=== PATIENT | male | born 1960 | race Caucasian/White ===

== ENCOUNTER 2019-07-07 00:10 | Emergency (ER) | payer OTHER, SELFPAY ==
[2019-07-07 00:19] VITALS: BP 174/94; PULSE 77; RESP 17; TEMP 37; O2SAT 98; BMI 35.3
--- NOTE | 2019-07-07 00:35 | HMH.EDEAR ---
ED Disposition Clinical Impression: Otitis externa Qualifiers: Otitis externa type: diffuse Chronicity: acute Laterality: left Qualified Code(s): H60.312 - Diffuse otitis externa, left ear Disposition: Home, Self-Care Condition on Discharge: Good Instructions: DI for Ear Pain-Adult Additional Instructions: use meds and see pcp for follow up Prescriptions: cephALEXin [Keflex 500mg Cap] 500 mg PO TID #30 cap Prescription Printed predniSONE [Prednisone 20mg Tab] 20 mg PO BID #10 tab Prescription Printed Referrals: Kiersten Sykes [Primary Care Provider] - Brett Goss MD [Staff Physician] - - Critical Care Critical Care Time: No Attestation: On 07/07/19, the high probability of a clinically significant, sudden or life threatening deterioration of the following system(s) required my full and direct attention, intervention and personal management. The time I documented below is in addition to time spent performing reported procedures but includes the following listed in this critical care notation. Medical Decision Making - Medical Records Medical records reviewed: Yes: I reviewed the patient's medical records. - Lionel Inquiry Pt receiving controlled substance: No Vital Signs: 07/07/19 00:19 Temperature 98.6 F Temperature Source Oral Pulse Rate [Right Brachial] 77 Respiratory Rate 17 Blood Pressure [Right Arm] 174/94 H Blood Pressure Mean [Right Arm] 120 Blood Pressure Source [Right Arm] Automatic Cuff Blood Pressure Position [Right Arm] Sitting 02 Sat by Pulse Oximetry 98 Oxygen Delivery Method Room Air - Lab Data Lab results reviewed: Yes: I reviewed the patient's lab results. Lab Results 07/07/19 00:44: WBC 12.5 H, RBC 5.11, Hgb 15.8, Hct 44.3, MCV 86.7, MCH 30.9, MCHC 35.7 H, RDW 13.1, Plt Count 199, MPV 9.2, Neut % (Auto) 68.5, Lymph % (Auto) 22.4, [place] % (Auto) 5.5, Eos % (Auto) 1.8, Baso % (Auto) 1.7, Neut # (Auto) 8.6 H, Lymph # (Auto) 2.8, [place] # (Auto) 0.7, Eos # (Auto) 0.2, Baso # (Auto) 0.2 Result diagrams: 07/07/19 00:44 Orders (Tests/Meds): ED MEDICATIONS Generic Name Dose Route Start Last Admin Trade Name Lou PRN Reason Stop Dose Admin Ceftriaxone Sodium 1 gm/ 50 mls @ 100 mls/hr 07/07/19 00:37 07/07/19 00:48 Sodium Chloride IV 07/07/19 01:06 100 mls/hr ONCE ONE Administration Protocol Discontinued Medications Generic Name Dose Route Start Last Admin Trade Name Lou PRN Reason Stop Dose Admin Ketorolac Tromethamine 30 mg 07/07/19 00:37 07/07/19 00:48 Toradol 30mg/Ml Vial IV 07/07/19 00:38 30 mg ONCE ONE Administration Methylprednisolone Sodium Succinate 125 mg 07/07/19 00:37 07/07/19 00:48 Solu-Medrol 125mg/2ml Vial IV 07/07/19 00:38 125 mg ONCE ONE Administration ORDERS Category Date Time Status CMP [Comprehensive Metabolic Panel] Stat Lab 07/07/19 00:44 Received Ear HPI - General Chief complaint: Ear Stated complaint: pain in left ear Time Seen by Provider: 07/07/19 00:30 Mode of Arrival: Family Vehicle Source of Information: Patient, Medical Record Limitations: No Limitations Description of Symptoms (Recalled from ER Triage Doc. by RN): left side ear ache since saturday morning that he has attempted otc treatment by using peroxide and irrigation, in addition to alternating tyl and motrin. afebrile. states he usually just rides it out but can't sleep and its making his bp high from the pain - History of Present Illness HPI Narrative: progressive lt ear pain over the last few days - no trauma or fever and no rash Complaint: ear pain Location: left ear Duration: constant Severity: moderate Discharge from ear: no Associated symptoms ear: external ear tenderness, ear swelling Treatment prior to arrival: oral analgesic - Related Data Home Medications Medication Instructions Recorded Confirmed Furosemide [Lasix 20mg tab] 20 mg PO DAILY 07/07/19 07/07/19 Indomethacin 25 mg PO T
[2019-07-07 00:59] LABS: Basophils # 0.2 K/mm3 (0-0.2); Basophils % 1.7 % (0.1-2.0); Eosinophils # 0.2 K/mm3 (0.0-0.4); Eosinophils % 1.8 % (0.1-12.0); Hematocrit 44.3 % (42.0-52.0); Hemoglobin 15.8 g/dL (14.1-18.0); Lymphocytes # 2.8 K/mm3 (0.7-4.5); Lymphocytes % 22.4 % (10-50); Mean Corpuscular HGB Conc 35.7 g/dL (31.8-35.4); Mean Corpuscular Hemoglobin 30.9 pg (27.0-31.2); Mean Corpuscular Volume 86.7 fl (80-94); Mean Platelet Volume 9.2 fl (7.4-10.4); Monocytes # 0.7 K/mm3 (0.1-1.0); Monocytes % 5.5 % (1.7-9.3); Neutrophils # 8.6 K/mm3 (1.8-7.8); Neutrophils % 68.5 % (37.0-80.0); Platelet Count 199 K/mm3 (142-424); Red Blood Count 5.11 M/mm3 (4.60-6.20); Red Cell Distribution Width 13.1 % (11.5-17.5); White Blood Count 12.5 K/mm3 (4.8-10.8)
[2019-07-07 01:05] LABS: Alanine Aminotransferase 37 U/L (12-78); Albumin Level 4.7 g/dl (3.5-5.0); Albumin/Globulin Ratio 1.4 (1.1-1.8); Alkaline Phosphatase 107 U/L (38-126); Anion Gap 12.1 mEq/L (5-15); Aspartate Amino Transferase 26 U/L (17-59); Bilirubin,Total 0.5 mg/dl (0.2-1.3); Blood Urea Nitrogen 18 mg/dl (9-20); Calcium 9.7 mg/dl (8.4-10.2); Carbon Dioxide 24 mmol/L (22.0-30.0); Chloride 105 mmol/L (98-107); Creatinine Clearance Estimated 126 mL/min (50-200); Estimated Glomerular Filt Rate 68 ml/min (>60); GFR (African American) 83 ML/MIN (>60); Globulin 3.3 g/dL (1.3-3.2); Glucose 183 mg/dl (74-100); Potassium 4.1 mmoL/L (3.5-5.1); Sodium 137 mmol/L (136-145)
[2019-07-07 01:25] VITALS: BP 165/74; PULSE 81; RESP 18; TEMP 36.8; O2SAT 98
== END 2019-07-07 01:28 | disposition home or self-care (01) ==
PROVIDERS: Emergency Provider Emergency Medicine; PCP Nurse Practitioner Family
DX: H60.312 Diffuse otitis externa, left ear (principal); I10 Essential (primary) hypertension
CPT/HCPCS: 80053; 85025; 96365; 96375; 99283; J2405

== ENCOUNTER 2023-12-12 06:59 | Day surgery (SDC) | payer MEDICARE, SELFPAY ==
--- NOTE | 2023-12-06 12:56 | SUR.PREOP ---
1256: VM left with call back number and arrival time.
[2023-12-06 14:19] VITALS: BMI 32.7
[2023-12-12] VITALS (8 sets, daily range): BP systolic 119–154; BP diastolic 72–81; PULSE 49–61; RESP 16–18; TEMP 36.1; O2SAT 95–100
[2023-12-12] MEDS: LACTATED RINGERS 1000ML 1,000 ML 25 ML IV (07:44)
--- NOTE | 2023-12-12 08:10 | P.PNANES_ITS ---
[facility] Disclaimer: The information contained in this section may have been updated after the patient was seen, as this information can be updated by other users. Medical History GERD (gastroesophageal reflux disease) Hypertension Surgical History H/O oral surgery Family History Other Cancer Coronary artery disease Social History Smoking Status: Former smoker alcohol intake: current alcohol intake frequency: holidays/special occasions only substance use type: denies use current occupational status: employed Travel in the last 8 weeks: None household members: family caffeine: Yes [facility] Anesthesia Checklist Patient Identification Patient Identification: Arm Band Structural Data Admitted From: Home Planned Operative Procedure/s: Colonoscopy Consent for Planned Operative Procedure(s) Verified: Yes Verified Documents: Surgical Consent and History and Physical NPO Status Verified Time NPO: 05:30 (prep) Additional verifications Anesthesia Reactions: No Airway Assessment Mallampati Score:: Class II C-Spine Mobility Assessed: Yes TMJ Mobility Assessed: Yes Dentition: Edentulous Neurological Assessment Level of Consciousness: Awake, Alert and Appropriate Anesthesia Plan Anesthesia Risk discussed: Yes Anesthesia Plan: Verified ASA Class: II Anesthesia Type: MAC
--- NOTE | 2023-12-12 08:17 | EXP.HP ---
History of Present Illness *Admission Date: 12/12/23 *Reason for visit:: Screening *History of present illness: Mr. Mayfield is a 63-year-old gentleman who is here for screening colonoscopy. This is his first colonoscopy. The examination is deemed medically necessary for colonoscopy. The patient has been seen, interviewed and examined prior to the procedure by both myself and the anesthesia provider. [facility] Disclaimer: The information contained in this section may have been updated after the patient was seen, as this information can be updated by other users. Medical History (Updated 12/12/23 @ 08:22 by Mando Dickson II, MD) GERD (gastroesophageal reflux disease) Hypertension Surgical History H/O oral surgery Family History Other Cancer Coronary artery disease Social History (Updated 12/12/23 @ 08:10 by Marcus Sierra CRNA) Smoking Status: Former smoker alcohol intake: current alcohol intake frequency: holidays/special occasions only substance use type: denies use current occupational status: employed Travel in the last 8 weeks: None household members: family caffeine: Yes Other Medical History Have you received the Flu Vaccine for this season: Yes Have you received the Pneumonia Vaccine: Yes Review of Systems Review of Systems Review of systems (narrative): Negative *Cardiovascular Comments: Negative *Gastrointestinal Comments: Negative *Genitourinary Comments: Negative *Musculoskeletal Comments: Negative *Neurologic Comments: Negative Meds Home Medications and Allergies Home Medications ?Medication ?Instructions ?Recorded ?Confirmed ?Type furosemide 20 mg tablet 20 mg PO DAILY Edema 07/07/19 12/12/23 History lisinopril 10 mg tablet 10 mg PO DAILY High blood pressure 07/07/19 12/12/23 History metoprolol tartrate 50 mg tablet 50 mg PO DAILY High blood pressure 07/07/19 12/12/23 History prednisone 20 mg tablet 20 mg PO BID #10 tabs 07/07/19 12/12/23 Rx New Prescriptions to Start Prescriptions: Allergies Allergy/AdvReac Type Severity Reaction Status Date / Time No Known Allergies Allergy Verified 07/07/19 00:27 Exam Data for Last 24 hours Vital signs and Labs for Last 24 Hours: Temp Pulse Resp BP Pulse Ox O2 Del Method 97 F L 61 16 154/81 H 99 Room Air 10/31/24 07:35 12/12/23 07:35 12/12/23 07:35 12/12/23 07:35 12/12/23 07:35 12/12/23 07:35 *Routine HEENT Exam Head: Present normocephalic Eye: Present EOMI and PERRL ENT: Present mucous membranes moist *Routine Neck Exam Neck: Present supple *Routine Respiratory Exam Respiratory: Present CTA bilaterally *Routine Cardiovascular Exam Cardiovascular: Present RRR *Routine Abdominal Exam Abdominal: Present soft and normoactive bowel sounds; Absent tenderness *Routine Rectal Exam Rectal:: deferred *Routine Genitalia Exam Genitalia:: deferred *Routine Extremities Exam Extremities: Absent cyanosis, clubbing or edema *Routine Skin Exam Skin: Present warm; Absent rash *Routine Neurological Exam Neurological: Present alert and oriented X3 Assessment and Plan *Assessment and plan (1) Screening for colon cancer: Status: Acute Category: Medical Code(s): Z12.11 - Encounter for screening for malignant neoplasm of colon Plan A/P: 1. Screening for colon cancer is the preprocedural diagnosis. The patient will be anesthetized/sedated using MAC sedation. The patient has been seen and examined. Cardiac and lung assessment prior to the examination is stable. Proceed with planned colonoscopy
--- NOTE | 2023-12-12 08:22 | HMH.PROCNOTE ---
[facility] Procedure Note Date: 12/12/23 Time: 08:51 Procedure Note:: Colonoscopy Procedure Report: Colonoscopy with cold snare polypectomy Endoscopist: Mando Dickson II, MD Referring physician: ROCIO Brown Date of Procedure: December 12, 2023 Equipment: Olympus 190 variable stiffness pediatric colonoscope Sedation: MAC sedation Indication: Mr. Mayfield is a 63-year-old gentleman who is here for initial screening colonoscopy. He reports no abdominal pain, weight loss, change in his bowel habits or rectal bleeding. He reports no family history of colon cancer. He does have a family history of prostate cancer. Procedure: Prior to the procedure, a history and physical exam was performed, and patient's medications and allergies were reviewed. The risks, benefits and alternatives of the sedation and procedure were discussed with the patient. All questions were answered and informed consent was obtained. The patient was brought to the procedure room. Patient identification and proposed procedure were verified by the physician and the nurse. The patient was placed in a left lateral decubitus position and the scope was passed under direct vision. Throughout the procedure, the patient's blood pressure, pulse, and oxygen saturations were monitored continuously. The colonoscopy was accomplished without difficulty. The patient tolerated the procedure well. Findings: On digital rectal examination there was normal rectal tone. There were no external hemorrhoids. The prostate was 2-3+, moderately firm in bilateral lower quadrants of the prostate. The colonoscope was introduced through the anal canal to the rectum and advanced to the cecum. The ileocecal valve and appendiceal orifice were identified. The scope was advanced a short distance into the ileum which appeared grossly normal. The scope was then withdrawn into the colon. There were 11 colon polyps (transverse x 2 (4 and 4 mm), descending x 4 (4, 4, 5 and 9 mm) and sigmoid x 5 (3, 4, 4, 4 and 5 mm)). All of these were removed via cold snare polypectomy. The remaining cecum, ascending and transverse colon and mucosa were grossly normal. There were extensively scattered diverticuli throughout the descending and sigmoid colon (LEFT colon). The rectum itself was normal. Upon retroflexion within the rectum there were grade 1-2 internal hemorrhoids. The preparation was excellent throughout with [place] Preparation Score of 9. The cecal time was 18 minutes. Impression: 1. Colonic polyps x 11 (ranging in size from 3 to 9 mm) 2. Extensive left-sided diverticulosis 3. Grade 1-2 internal hemorrhoids Plan: I will follow-up the polyp histology and recommend repeat surveillance colonoscopy again in 1 to 2 years. I would encourage bulking fiber psyllium supplementation on a long-term daily maintenance basis. I would recommend routine PSA testing (firm lower prostate and family history).
[2023-12-12 10:54] LABS: Prostate Specific Ag, Diagnost 4.51 ng/ml (0.0-4.0)
== END 2023-12-12 10:00 | disposition home or self-care (01) ==
PROVIDERS: PCP Nurse Practitioner Family; Visit Provider Internal Medicine Gastroenterology
PROC: 0DJD8ZZ Inspection of Lower Intestinal Tract, Via Natural or Artificial Opening Endoscopic (ICD-10-PCS; CPT 45378; principal; 2023-12-12 08:30)
DX: Z12.11 Encounter for screening for malignant neoplasm of colon (principal); D12.4 Benign neoplasm of descending colon; D12.5 Benign neoplasm of sigmoid colon; D12.3 Benign neoplasm of transverse colon; K57.30 Diverticulosis of large intestine without perforation or abscess without bleeding; K64.1 Second degree hemorrhoids; Z79.899 Other long term (current) drug therapy
CPT/HCPCS: 45385; 36415; 84153; 88305; J7120

== ENCOUNTER 2024-01-06 09:26 | Outpatient (CLI) | payer OTHER, SELFPAY ==
[2024-01-07 08:20] LABS: PSA, Free 1.17 ng/mL; Prostate Specific Ag 3.8 ng/mL (0.0-4.0)
== END 2024-01-06 23:59 | disposition home or self-care (01) ==
LOC: LAB 09:27
PROVIDERS: PCP Nurse Practitioner Family; Visit Provider Urology
DX: R97.20 Elevated prostate specific antigen [PSA] (principal)
CPT/HCPCS: 36415; 84153; 84154

== ENCOUNTER 2024-12-18 09:56 | Outpatient (CLI) | payer OTHER, SELFPAY ==
--- OUTSIDE RECORDS SUMMARY | 2024-12-18 10:00 | XMS_ITS | Referral Summary ---
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
--- OUTSIDE RECORDS SUMMARY | 2024-12-18 10:00 | XMS_ITS | Clinical Summary ---
Author Organization [facility] Address [address] [place] [address] Care Team Providers Care Air Value Tester Name Role Phone Natividad Thompson ROMMEL Primary Care Provider [phone] Allergies No known active allergies Medications furosemide (LASIX) 20 MG tablet Take 20 mg by mouth Daily. 5 08/30/2018 Active lisinopril (PRINIVIL,ZESTR IL) 10 MG tablet Take 10 mg by mouth Daily. 5 11/02/2018 Active predniSONE (DELTASONE) 10 MG tablet 07/16///03/14 As directed PO 21 tablet 01/03/2019 Active Family History Medical History Relation Name Comments Cancer Brother Heart disease Father Heart disease Mother Cancer Sister Relation Name Status Comments Brother Father Mother Sister Social History Tobacco Use Types Packs/Day Years Used Date Smoking Tobacco: Never Abuse Screen Answer Date Recorded Unsafe at Home or Work/School Not on file Feels Threatened by Someone? Not on file 01/2023 Does Anyone Keep You from Co ntacting Others or Doint Things Outside the Home? Not on file 11/22/2022 Physical Sign of Abuse Present Not on file 1 Housing Stability Answer Date Recorded Current Living Arrangements Not on file 11/11 Potentially Unsafe Housing Conditions Not on fatmata e 11/22/2022 Family and Community Support Answer Mick e Recorded Help with Day-to-Day Activities Not on file 11/22/2022 Lonely or Isolated Not on file 11/22/2022 Employment Answer Date Recorded Do you want help finding or keeping work or a chavez b? Not on file 11/22/2022 Disabilities Answer Date Recorded Concentrating, Remembering, or Making Decisions Difficulty Not on file 11/22/2022 Doing Errands Independently Difficulty Not on fi le 11/22/2022 Education Answer Date Recorded Help with school or training? Not on file Preferred Language Not on file 11/22/2022 Sex and Gender Information Value Date Recorded Sex Assigned at Not on file Legal Sex Male 10:32 AM EDT Gender Identity Not on file Sexual Orientation Not on file Last Filed Vital Signs Vital Sign Reading Time Taken Comments Blood Pressure 128/78 01/03/2019 11:51 AM EST Pulse 69 01/03/2019 11:51 AM EST Temperature 37 C (98.6 F) 01/03/2019 11:51 AM EST Respiratory Rate 16 01/03/2019 11:51 AM EST Oxygen Saturation 99% 01/03/2019 11:51 AM EST Inhaled Oxygen Concentration - - Weight 131 kg (289 lb) 01/03/2019 11:51 AM EST Height 188 cm (6' 2 ) 01/03/2019 11:51 AM EST Body Mass Index 37.11 01/03/2019 11:51 AM EST Plan of Treatment Health Maintenance Due Date Last Done Comments TDAP/TD VACCINES (1 - Tdap) 1978 COLOGUARD 02/15/2004 COLON CANCER SCREENING 5 YEAR SIGMOIDOSCOPY 02/15/2004 COLONOSCOPY 02/15/2004 COLORECTAL CANCER SCREENING 02/15/2004 CT COLONOGRAPHY 02/15/2004 FECAL OCCULT BLOOD TEST 02/15/2004 FIT Testing (1 year) 02/15/2004 Pneumococcal Vaccine 50+ (1 of 1 - PCV) 2009 ZOSTER VACCINE (1 of 2) 2009 ANNUAL PHYSICAL 11/18/2018 HEPATITIS C SCREENING 11/18/2018 INFLUENZA VACCINE 09/11/2024 COVID-19 Vaccine ( season) 2024 AAA SCREEN ONCE Completed 10/14/[address] [place] [address] [address] [place] [address] PPO Member Subscriber Plan / Payer (Ef fective 2017-Present) Name:Scot Mayfield Relation to Subscriber:Self Name:Scot Mayfield Payer ID:[id number] (NAIC) Type:Not on file Address: [id number] [place] [id number] Care Teams Air Value Tester Relationship Specialty Start Date End Date Natividad Thompson APRN [address] [place] [address] PCP - General Family Medicine 11/18/18
--- OUTSIDE RECORDS SUMMARY | 2024-12-18 10:00 | XMS_ITS | Encounter Summary ---
Author Organization Healthcare Address [address] [place] [address] Care Team Providers Care Sap Architect Name Role Phone Natividad Thompson APRN Primary Care Provider + [phone] Kiersten Sykes WAREHOUSE PICKER Primary Care Provider + [phone] Encounter Details Date Type Department Care Team (Late st Contact Info) Description 02/10/2024 Orders Only External Location [address] [place] [address] Provider, External Social History Tobacco Use Types Packs/Day Years Used Date Smoking Tobacco: Never Alcohol Use Standard Drinks/Week Comments No 0 (1 standard drink = 0.6 oz pur e alcohol) Sex and Gender Information Value Date Recorded Sex Assigned at Not on file Legal Sex Male 7:09 PM EDT Gender Identity Not on file Sexual Orientation Not on file documented as of this encounter Plan of Treatment Upcoming Encounters Date Type Department Care Team (Latest Contact Info) Description 12/30/2024 10:00 AM EST Clinical Support [facility] [address] [place] [address] 12/30/2024 10:20 AM EST Office Visit [facility] [address] [place] [address] Kurt Casiano MD [address] [address] documented as of this encounter Procedures Procedure Name Priority Date/Time Associated Diagnosis Comments MR OUTSIDE IMAGES 02/10/2024 9:04 AM EST documented in this encounter Results * MR transfer of outside films (02/10/2024 9:04 AM EST) Anatomical Region Laterality Modality Magnetic Resonan ce 02/10/2024 9:04 AM EST us External Provider IMG MRI PROCEDURES Final Resul t documented in this encounter Visit Diagnoses Not on filedocumented in this encounter Care Teams Sap Architect Relationship Specialty Start Date End Date Natividad Thompson, WAREHOUSE PICKER [address] [place], [place] [id number] PCP - General 06/24/20 10/13/24 Kiersten Sykes, WAREHOUSE PICKER [facility] [place], [place] [id number] PCP - General 10/14/24 documented as of this encounter
--- OUTSIDE RECORDS SUMMARY | 2024-12-18 10:00 | XMS_ITS | Encounter Summary ---
Author Organization [facility] Address [address] [place] [address] Care Team Providers Care Fence Repairman Name Role Phone Natividad Thompson Freddie MOTOR VEHICLE FIELD REPRESENTATIVE Primary Care Provider + [phone] Kiersten Sykes MOTOR VEHICLE FIELD REPRESENTATIVE Primary Care Provider + [phone] Encounter Details Date Type Department Care Team (Late st Contact Info) Description 04/24/2024 Lab Requisition [facility] [address] [place] [id number] Antonella Davis PA [address] [address] Elevated prostate specific antigen (PSA) Social History Tobacco Use Types Packs/Day Years [...] Clinical Support [facility] [address] [place] [address] 12/30/2024 10:20 AM EST Office Visit [facility] [address] [place] [address] Kurt Casiano MD [address] [address] documented as of this encounter Procedures Procedure Name Priority Date/Time Associated Diagnosis Comments SURGICAL PATHOLOGY CONSULT Routine 04/24/2024 1:32 PM EDT Elevated prostate specific antigen (PSA) documented in this encounter Results * Surgical Pathology Consult (04/24/2024 1:32 PM EDT) Case Report Sugical Pathology Consult Case: [id number] Authorizing Provider: Antonella Davis PA Collected: 04/24/2024 1332 Ordering Location: [facility] Received: 04/24/2024 1332 Pathologist: Ciro Rizvi MD Specimen: Prostate, [id number] 04/29/2024 11:39 AM EDT [facility] Final Diagnosis OUTSIDE CASE [id number]; COLLECTED 03/26/2024: A. PROSTATE, LEFT (BIOPSY): - BENIGN PROSTATE TISSUE B. PROSTATE, RIGHT (BIOPSY): - PROSTATIC ADENOCARCINOMA, ASHELY SCORE 3 + 4 = 7 (GRADE GROUP 2), INVOLVING 75% OF ONE OF SIX (1/6) CORES (<5% PATTERN 4) C. PROSTATE, REGION OF INTEREST #1 (BIOPSY): - PROSTATIC ADENOCARCINOMA, ASHELY SCORE 3 + 4 = 7 (GRADE GROUP 2), INVOLVING 90% AND 60% OF TWO OF TWO (2/2) CORES (10% ASHELY PATTERN 4) D. PROSTATE, REGION OF INTEREST #2 (BIOPSY): - BENIGN PROSTATE TISSUE 04/29/2024 11:39 AM EDT [facility] at 1139 EDT Comment The pattern 4 has in areas a focal cribriform morphology (SATNAM #1) 04/29/2024 11:39 AM EDT [facility] Clinical Information R97.20 - Elevated prostate specific antigen (PSA) [ICD-10-CM] 04/29/2024 11:39 AM EDT [facility] Gross Description A. [id number] Received along with a corresponding pathology report from [facility] are 6 slides labeled outside case: [id number] collected on 03/26/2024. 04/29/2024 11:39 AM EDT [facility] Note: A resident was involved in the service. I attest I examined the relevant preparations for the specimens and confirmed the diagnosis or interpretation. 04/29/2024 11:39 AM EDT [facility] Tissue Prostate / Unknown 1:32 PM EDT 04/24/2024 1:32 PM EDT us Antonella [facility] PATHOLOGY ORDERABLES F inal Result [facility] [address] [place] [address] documented in this encounter Visit Diagnoses Diagnosis Elevated prostate specific antigen (PSA) documented in this encounter Care Teams Fence Repairman Relationship Specialty Start Date End Date Natividad Thompson APRN [address] [place], [place] [id number] PCP - General 06/24/20 10/13/24 Kiersten Sykes APRN [address] [place], [place] [id number] PCP - General 10/14/24 documented as of this encounter
--- OUTSIDE RECORDS SUMMARY | 2024-12-18 10:00 | XMS_ITS | Data Portability ---
Author Organization [facility] [place] [facility] Address [address] [place] [address] Assessment No assessment recorded. Plan of Treatment Reminders Order Date Submit Date Provider Last Modified By Organization Details Last Modified Time Details Appointments None recorded. Lab urinalysis, dipstick [address], [address], 5 09:26:31 urinalysis, dipstick [address], [address], 5 10:40:05 urinalysis, dipstick [email or web address], [address], 5 14:48:47 culture, urine 2024 025 [place] [facility], [address] [place] [address], [address], 5 16:08:47 lipid panel, serum 2024 025 [place] [facility], [address] [place] [address], [address], 14:08:26 CBC w/ auto diff 2024 025 [facility]), [address] [place] [address], [address], 5 14:08:23 vitamin D, 25-hydroxy, total, serum 2024 025 [facility]), [address] [place] [address], [address], 5 14:08:27 HbA1c (hemoglobin A1c), blood [address], [address] [place] [address], [address], 5 09:36:40 comprehensi ve metabolic 1998 panel, serum or plasma 2024 025 [facility]), [address] [place] [address], [address], 5 14:08:24 microalbumi n/creatinin e, mass ratio, urine 2024 025 [facility]), [address] [place] [address], [address], 5 14:08:26 uric acid, serum or plasma 2024 025 [facility]), [address] [place] [address], [address], 5 14:08:29 TSH, ultra-sensi tive, serum 2024 025 [facility]), [address] [place] [address], [address], 5 14:08:28 Referral None recorded. Procedures None recorded. Surgeries None recorded. Imaging None recorded. Medication Orders Depo-Medrol 40 mg/mL suspension for injection 2024 025 [email or web address] [facility], [address] [place] [address], [address], 09:38:35 ceftriaxone 1 gram solution for injection 2024 025 [email or web address] Not available 10:37:26 ibuprofen 600 mg tablet 2024 [email or web address] Not available 15:06:11 levofloxaci n 750 mg tablet 2024 [facility], [address] [place] [address], [address], 5 05:02:10 mupirocin 2 % topical ointment 2024 [facility], [address] [place] [address], [address], 15:14:41 Patient TargetsNo targets recorded. Patient InstructionsNo instructions recorded. Reason for Referral None Reported. Results Created Date Observation Date Name Description Value Unit Range Abnormal Flag Note LastModifiedBy Organization Detail LastModifiedTime 07/22/1907/22/2024 CBC WITH DIFFE RENTI AL/PL ATELE T WBC 7.8 x10e3 /uL 3.4-10 .8 normal Not Available [facility] ([facility]) [address] [place], [address], 07/22/2024 14:08:23 07/22/19 25 07/22/2024 CBC WITH DIFFE RENTI AL/PL ATELE T RBC 5.05 x10e6 /uL 4.14-5 .80 normal Not Available [facility] ([facility]) [address] [facility], [place], [address], 07/22/2024 14:08:23 07/22/19 25 07/22/2024 CBC WITH DIFFE RENTI AL/PL ATELE T hemoglobin 15.0 g/dL 13.0-1 7.7 normal Not Available [facility] ([facility]) [address] [facility], [place], [address], 07/22/2024 14:08:23 07/22/19 25 07/22/2024 CBC WITH DIFFE RENTI AL/PL ATELE T hematocrit 46.2 % 37.5-5 1.0 normal Not Available [facility] ([facility]) [address] [facility], [place], [address], 07/22/2024 14:08:23 07/22/19 25 07/22/2024 CBC WITH DIFFE RENTI AL/PL ATELE T MCV 92 fL 79-97 normal Not Available [facility] ([facility]) [address] [facility], [place], [address], 07/22/2024 14:08:23 07/22/19 25 07/22/2024 CBC WITH DIFFE RENTI AL/PL ATELE T MCH 29.7 pg 26.6-3 3.0 normal Not Available [facility] ([facility]) [address] [place], [address], 07/22/2024 14:08:23 07/22/19 25 07/22/2024 CBC WITH DIFFE RENTI AL/PL ATELE T MCHC 32.5 g/dL 31.5-3 5.7 normal Not Available [facility] ([facility]) [address] [place], [address], 07/22/2024 14:08:23 07/22/19 25 07/22/2024 CBC WITH DIFFE RENTI AL/PL ATELE T RDW 12.8 % 11.6-1 5.4 Not Available [facility] ([facility]) [address] [place], [address], 07/22/2024 14:08:23 07/22/19 25 07/22/2024 CBC WITH DIFFE RENTI AL/PL ATELE T platelets 175 x10e3 /uL 150-45 0 normal Not Available [facility] ([facility]) [address] [facility], [place], [address], 07/22/2024 14:08:23 07/22/19 25 07/22/2024 CBC WITH DIFFE RENTI AL/PL ATELE T neutrophils 58 % not estab. normal Not Available [facility] ([facility]) [address] [facility], [place], [address], 07/22/2024 14:08:23 07/22/19 25 07/22/2024 CBC WITH DIFFE RENTI AL/PL ATELE T lymphs 31 % not estab. normal Not Available [facility] ([facility]) [address] [facility], [place], [address], 07/22/2024 14:08:23 07/22/19 25 07/22/2024 CBC WITH DIFFE RENTI AL/PL ATELE T monocytes 8 % not estab. normal Not Available [facility] ([facility]) [address] [facility], [place], [address], 07/22/2024 14:08:23 07/22/19 25 07/22/2024 CBC WITH DIFFE RENTI AL/PL ATELE T eos 2 % not estab. normal Not Available [facility] ([facility]) [address] [facility], [place], [address], 07/22/2024 14:08:23 07/22/19 25 07/22/2024 CBC WITH DIFFE RENTI AL/PL ATELE T basos 1 % not estab. normal Not Available [facility] ([facility]) [address] [facility], [place], [address], 07/22/2024 14:08:23 07/22/19 25 07/22/2024 CBC WITH DIFFE RENTI AL/PL ATELE T immature cells TISSUE TECHNICIAN Not Available [facility] ([facility]) [address] [facility], [place], [address], 07/22/2024 14:08:23 07/22/19 25 07/22/2024 CBC WITH DIFFE RENTI AL/PL ATELE T neutrophils (absolute) 4.5 x10e3 /uL 1.4-7. 0 normal Not Available [facility] ([facility]) [address] [facility], [place], [address], 07/22/2024 14:08:23 07/22/19 25 07/22/2024 CBC WITH DIFFE RENTI AL/PL ATELE T lymphs (absolute) 2.4 x10e3 /uL 0.7-3. 1 normal Not Available [facility] ([facility]) [address] [place], [address], 07/22/2024 14:08:23 07/22/19 25 07/22/2024 CBC WITH DIFFE RENTI AL/PL ATELE T monocytes(ab solute) 0.6 x10e3 /uL 0.1-0. 9 normal Not Available [facility] ([facility]) [address] [facility], [place], [address], 07/22/2024 14:08:23 07/22/19 25 07/22/2024 CBC WITH DIFFE RENTI AL/PL ATELE T eos (absolute) 0.2 x10e3 /uL 0.0-0. 4 normal Not Available [facility] ([facility]) [address] [place], [address], 07/22/2024 14:08:23 07/22/19 25 07/22/2024 CBC WITH DIFFE RENTI AL/PL ATELE T baso (absolute) 0.1 x10e3 /uL 0.0-0. 2 normal Not Available [facility] ([facility]) [address] [place], [address], 07/22/2024 14:08:23 07/22/19 25 07/22/2024 CBC WITH DIFFE RENTI AL/PL ATELE T immature granulocytes 0 % not estab. Not Available [facility] ([facility]) [address] [facility], [place], [address], 07/22/2024 14:08:23 07/22/19 25 07/22/2024 CBC WITH DIFFE RENTI AL/PL ATELE T immature grans (abs) 0.0 x10e3 /uL 0.0-0. 1 Not Available [facility] ([facility]) [address] [facility], [place], [address], 07/22/2024 14:08:23 07/22/19 25 07/22/2024 CBC WITH DIFFE RENTI AL/PL ATELE T NRBC TISSUE TECHNICIAN Not Available [facility] ([facility]) [address] [facility], [place], [address], 07/22/2024 14:08:23 07/22/19 25 07/22/2024 CBC WITH DIFFE RENTI AL/PL ATELE T hematology comments: TISSUE TECHNICIAN Not Available [facility] ([facility]) [address] [facility], [place], [address], 07/22/2024 14:08:23 07/22/19 25 07/22/2024 COMP. METAB OLIC PANEL (14) glucose 152 mg/dL 70-99 above high normal Not Available [facility] ([facility]) [address] [facility], [place], [address], 07/22/2024 14:08:24 07/22/19 25 07/22/2024 COMP. METAB OLIC PANEL (14) hemoglobin A1C 6.1 % 4.8-5. 6 above high normal Predi abete s: 5.7 - 6.4 Diabe yuridia: >6.4 Glyce leoncio contr ol for adult s with diabe yuridia: <7.0 Not Available [facility] ([facility]) [address] [facility], [place], [address], 07/22/2024 14:08:24 07/22/19 25 07/22/2024 COMP. METAB OLIC PANEL (14) BUN 22 mg/dL 8-27 normal Not Available [facility] ([facility]) [address] [place], [address], 07/22/2024 14:08:24 07/22/19 25 07/22/2024 COMP. METAB OLIC PANEL (14) creatinine 1.23 mg/dL 0.76-1 .27 normal Not Available [facility] ([facility]) [address] [place], [address], 07/22/2024 14:08:24 07/22/19 25 07/22/2024 COMP. METAB OLIC PANEL (14) eGFR 65 mL/mi n/1.7 3 >59 normal Not Available [facility] ([facility]) [address] [place], [address], 07/22/2024 14:08:24 07/22/19 25 07/22/2024 COMP. METAB OLIC PANEL (14) BUN/creatini ne ratio 18 10-24 normal Not Available [facility] ([facility]) [address] [place], [address], 07/22/2024 14:08:24 07/22/19 25 07/22/2024 COMP. METAB OLIC PANEL (14) sodium 138 mmol/ L 134-14 4 normal Not Available [facility] ([facility]) [address] [place], [address], 07/22/2024 14:08:24 07/22/19 25 07/22/2024 COMP. METAB OLIC PANEL (14) potassium 4.6 mmol/ L 3.5-5. 2 normal Not Available [facility] ([facility]) [address] [place], [address], 07/22/2024 14:08:24 07/22/19 25 07/22/2024 COMP. METAB OLIC PANEL (14) chloride 102 mmol/ L 96-106 normal Not Available [facility] ([facility]) [address] [facility], [place], [address], 07/22/2024 14:08:24 07/22/19 25 07/22/2024 COMP. METAB OLIC PANEL (14) carbon dioxide, total 21 mmol/ L 20-29 normal Not Available [facility] ([facility]) [address] [place], [address], 07/22/2024 14:08:24 07/22/19 25 07/22/2024 COMP. METAB OLIC PANEL (14) calcium 8.8 mg/dL 8.6-10 .2 normal Not Available [facility] ([facility]) [address] [place], [address], 07/22/2024 14:08:24 07/22/19 25 07/22/2024 COMP. METAB OLIC PANEL (14) protein, total 6.7 g/dL 6.0-8. 5 normal Not Available [facility] ([facility]) [address] [place], [address], 07/22/2024 14:08:24 07/22/19 25 07/22/2024 COMP. METAB OLIC PANEL (14) albumin 4.3 g/dL 3.9-4. 9 normal Not Available [facility] ([facility]) [address] [place], [address], 07/22/2024 14:08:24 07/22/19 25 07/22/2024 COMP. METAB OLIC PANEL (14) globulin, total 2.4 g/dL 1.5-4. 5 Not Available [facility] ([facility]) [address] [place], [address], 07/22/2024 14:08:24 07/22/19 25 07/22/2024 COMP. METAB OLIC PANEL (14) bilirubin, total 0.2 mg/dL 0.0-1. 2 normal Not Available [facility] ([facility]) [address] [place], [address], 07/22/2024 14:08:24 07/22/19 25 07/22/2024 COMP. METAB OLIC PANEL (14) alkaline phosphatase 107 IU/L 44-121 normal Not Available [facility] ([facility]) [address] [place], [address], 07/22/2024 14:08:24 07/22/19 25 07/22/2024 COMP. METAB OLIC PANEL (14) AST (SGOT) 14 IU/L 0-40 normal Not Available [facility] ([facility]) [address] [place], [address], 07/22/2024 14:08:24 07/22/19 25 07/22/2024 COMP. METAB OLIC PANEL (14) ALT (SGPT) 16 IU/L 0-44 normal Not Available [facility] ([facility]) [address] [place], [address], 07/22/2024 14:08:24 07/22/19 25 07/22/2024 LIPID PANEL cholesterol, total 145 mg/dL 100-19 9 normal Not Available [facility] ([facility]) [address] [place], [address], 07/22/2024 14:08:25 07/22/19 25 07/22/2024 LIPID PANEL triglyceride s 224 mg/dL 0-149 above high normal Not Available [facility] ([facility]) [address] [place], [address], 07/22/2024 14:08:25 07/22/19 25 07/22/2024 LIPID PANEL HDL cholesterol 33 mg/dL >39 below low normal Not Available [facility] ([facility]) [address] [place], [address], 07/22/2024 14:08:25 07/22/19 25 07/22/2024 LIPID PANEL VLDL cholesterol mingo 37 mg/dL 5-40 Not Available [facility] ([facility]) [address] [facility], [place], [address], 07/22/2024 14:08:25 07/22/19 25 07/22/2024 LIPID PANEL LDL chol calc ([facility]) 75 mg/dL 0-99 Not Available [facility] ([facility]) [address] [facility], [place], [address], 07/22/2024 14:08:25 07/22/19 25 07/22/2024 LIPID PANEL LDL calc comment: TISSUE TECHNICIAN Not Available [facility] ([facility]) [address] [facility], [place], [address], 07/22/2024 14:08:25 07/22/19 25 07/22/2024 ALBUM IN/CR EAT RATIO , RANDO M UR creatinine, urine 83.8 mg/dL not estab. normal Not Available [facility] ([facility]) [address] [place], [address], 07/22/2024 14:08:26 07/22/19 25 07/22/2024 ALBUM IN/CR EAT RATIO , RANDO M UR albumin, urine 7.3 ug/mL not estab. Not Available [facility] ([facility]) [address] [facility], [place], [address], 07/22/2024 14:08:26 07/22/19 25 07/22/2024 ALBUM IN/CR EAT RATIO , RANDO M UR alb/creat ratio 9 mg/g_ creat 0-29 Adenike l: 0 - 29 Moder ately incre ased: 30 - 300 Sever alessandra incre ased: >300 Not Available [facility] ([facility]) [address] [facility], [place], [address], 07/22/2024 14:08:26 07/22/19 25 07/22/2024 VITAM IN D, 25-HY DROXY vitamin D, 25-hydroxy 52.5 NG/mL 30.0-1 00.0 Vitam in D defic iency has been defin ed by the Insti tute of Medic ine and an Endoc rine Socie ty pract ice guide line as a level of serum 25-OH vitam in D less than 20 ng/mL (1,2) . The Endoc rine Socie ty went on to furth er defin e vitam in D insuf ficie ncy as a level betwe en 21 and 29 ng/mL (2). 1. IOM (Inst itute of Medic ine). 2010. Dieta ry refer ence intak es for calci um and D. Marian day [place]: [facility] . 2. Haylee smalls MF, Inocencia drew [place], Naren off-F aydeear i GONZALEZ, et al. Evalu ation , treat ment, and preve ntion of vitam in D defic iency : an Endoc rine Socie ty clini mingo pract ice guide line. JCEM. 2010; 96(7) :1911 -30. Not Available [facility] ([facility]) [address] [place], [address], 07/22/2024 14:08:27 07/22/19 25 07/22/2024 TSH RFX ON ABNOR MAL TO FREE T4 TSH 2.420 uIU/m L 0.450- 4.500 normal Not Available [facility] ([facility]) [address] [place], [address], 07/22/2024 14:08:28 07/22/19 25 07/22/2024 URIC ACID uric acid 6.6 mg/dL 3.8-8. 4 normal Thera peuti c targe t for gout patie nts: <6.0 Not Available [facility] ([facility]) [address] [place], [address], 07/22/2024 14:08:29 07/22/19 25 07/21/2024 HbA1c (hemo globi n A1c), blood HbA1c 6.2 Not Available [address], [address], 07/21/2024 09:30:21 09/26/1909/25/2024 urina lysis , dipst ick Leukocytes Large Not Available [address], [address], 09/25/2024 14:44:24 09/26/19 25 09/25/2024 urina lysis , dipst ick Nitrite positi ve Not Available [address], [address], 09/25/2024 14:44:24 09/26/19 25 09/25/2024 urina lysis , dipst ick Urobilinogen 1 Not Available [address], [address], 09/25/2024 14:44:24 09/26/19 25 09/25/2024 urina lysis , dipst ick Protein 300 Not Available [address], [address], 09/25/2024 14:44:24 09/26/19 25 09/25/2024 urina lysis , dipst ick pH 6.0 Not Available [address], [address], 09/25/2024 14:44:24 09/26/19 25 09/25/2024 urina lysis , dipst ick Blood Large Not Available [address], [address], 09/25/2024 14:44:24 09/26/19 25 09/25/2024 urina lysis , dipst ick Specific Anderson 1.025 Not Available [address], [address], 09/25/2024 14:44:24 09/26/19 25 09/25/2024 urina lysis , dipst ick Ketone Negati ve Not Available [address], [address], 09/25/2024 14:44:24 09/26/19 25 09/25/2024 urina lysis , dipst ick Bilirubin Negati ve Not Available [address], [address], 09/25/2024 14:44:24 09/26/19 25 09/25/2024 urina lysis , dipst ick Glucose Negati ve Not Available [address], [address], 09/25/2024 14:44:24 09/26/19 25 09/25/2024 urina lysis , dipst ick Appearance Cloudy Not Available [address], [address], 09/25/2024 14:44:24 09/26/19 25 09/25/2024 urina lysis , dipst ick Color Yellow Not Available [address], [address], 09/25/2024 14:44:24 09/29/19 25 09/28/2024 urina lysis , dipst ick Leukocytes Trace Not Available [address], [address], 09/28/2024 10:37:38 09/29/19 25 09/28/2024 urina lysis , dipst ick Nitrite negati ve Not Available [address], [address], 09/28/2024 10:37:38 09/29/19 25 09/28/2024 urina lysis , dipst ick Urobilinogen .2 Not Available [address], [address], 09/28/2024 10:37:38 09/29/19 25 09/28/2024 urina lysis , dipst ick Protein 100 Not Available [address], [address], 09/28/2024 10:37:38 09/29/19 25 09/28/2024 urina lysis , dipst ick pH 6.0 Not Available [address], [address], 09/28/2024 10:37:38 09/29/19 25 09/28/2024 urina lysis , dipst ick Blood Large Not Available [address], [address], 09/28/2024 10:37:38 09/29/19 25 09/28/2024 urina lysis , dipst ick Specific Anderson 1.030 Not Available [address], [address], 09/28/2024 10:37:38 09/29/19 25 09/28/2024 urina lysis , dipst ick Ketone Negati ve Not Available [address], [address], 09/28/2024 10:37:38 09/29/19 25 09/28/2024 urina lysis , dipst ick Bilirubin Modera te Not Available [address], [address], 09/28/2024 10:37:38 09/29/19 25 09/28/2024 urina lysis , dipst ick Glucose Negati ve Not Available [address], [address], 09/28/2024 10:37:38 09/29/19 25 09/28/2024 urina lysis , dipst ick Appearance Slight ly Cloudy Not Available [address], [address], 09/28/2024 10:37:38 09/29/19 25 09/28/2024 urina lysis , dipst ick Color Red Not Available [address], [address], 09/28/2024 10:37:38 10/04/19 25 10/03/2024 urina lysis , dipst ick Leukocytes Modera te Not Available [address], [address], 10/03/2024 09:13:07 10/04/19 25 10/03/2024 urina lysis , dipst ick Nitrite negati ve Not Available [address], [address], 10/03/2024 09:13:07 10/04/19 25 10/03/2024 urina lysis , dipst ick Urobilinogen .2 Not Available [address], [address], 10/03/2024 09:13:07 10/04/19 25 10/03/2024 urina lysis , dipst ick Protein 100 Not Available [address], [address], 10/03/2024 09:13:07 10/04/1910/03/2024 urina lysis , dipst ick pH 5.5 Not Available [address], [address], 10/03/2024 09:13:07 10/04/1910/03/2024 urina lysis , dipst ick Blood Large Not Available [address], [address], 10/03/2024 09:13:07 10/04/1910/03/2024 urina lysis , dipst ick Specific Anderson 1.025 Not Available [address], [address], 10/03/2024 09:13:07 10/04/1910/03/2024 urina lysis , dipst ick Ketone Trace Not Available [address], [address], 10/03/2024 09:13:07 10/04/1910/03/2024 urina lysis , dipst ick Bilirubin Negati ve Not Available [address], [address], 10/03/2024 09:13:07 10/04/1910/03/2024 urina lysis , dipst ick Glucose Negati ve Not Available [address], [address], 10/03/2024 09:13:07 10/04/1910/03/2024 urina lysis , dipst ick Appearance Slight ly Cloudy Not Available [address], [address], 10/03/2024 09:13:07 10/04/19 25 10/03/2024 urina lysis , dipst ick Color Pale Yellow Not Available [address], [place], [address], 10/03/2024 09:13:07 Result Notes None recorded. Problems Name Problem SNOMED Code Status Onset Date Resolution Date Notes Provider Name and Address Organization Details Recorded Time Kasey spicer [id number] Completed 201607/29/2016 Problem Code: B35.6; Problem Code Type: ICD-10; Not Available [facility] 22:10:26 Hyperten sive disorder [id number] Active 2016 Problem Code: I10; Problem Code Type: ICD-10; Not Available [facility] 22:10:27 Gastroes ophageal reflux disease without esophagi tis 522800326 Completed 201607/09/2020 Not Available [facility] 22:10:28 Idiopath ic osteoart hritis 080096670 Completed 201610/26/2017 Problem Code: M15.0; Problem Code Type: ICD-10; Not Available [facility] 22:10:28 Localize d edema [id number] Completed 201607/29/2016 Problem Code: R60.0; Problem Code Type: ICD-10; Not Available [facility] 22:10:29 Dermatop hytosis of the body Completed 201607/29/2016 Problem Code: 110.5; Problem Code Type: ICD-9; Not Available [facility] 22:10:31 Benign essentia l hyperten prince 7551436 Completed 201610/26/2017 Problem Code: 401.1; Problem Code Type: ICD-9; Not Available [facility] 22:10:32 Edema 874719626 Completed 201607/29/2016 Problem Code: 782.3; Problem Code Type: ICD-9; Not Available [facility] 22:10:33 Osteoart hrosis involvin g multiple sites but not designat ed as generali zed 12724987 Completed 201610/26/2017 Problem Code: 715.89; Problem Code Type: ICD-9; Not Available [facility] 22:10:34 Common cold 58332702 Completed 201601/26/2017 Not Available [facility] 22:10:27 Influenz a with non-resp iratory manifest ation 11660963 Completed 201601/26/2017 Problem Code: 487.8; Problem Code Type: ICD-9; Not Available [facility] 22:10:32 Hyperten sive disorder 58684059 Completed 201710/07/2017 Problem Code: I10; Problem Code Type: ICD-10; Not Available [facility] 22:10:27 Acute bronchit is 99772181 Completed 201704/30/2017 Problem Code: J20.9; Problem Code Type: ICD-10; ALICE calloway, [employer] 11:56:43 Benign essentia l hyperten prince 1118106 Completed 201710/07/2017 Problem Code: 401.1; Problem Code Type: ICD-9; Not Available [facility] 2 22:10:32 Low back pain 908196185 Completed 201711/11/2021 Problem Code: M54.5; Problem Code Type: ICD-10; ALICE calloway, [employer] 11:56:43 Finding of body mass index 793728088 Completed 201710/26/2017 Problem Code: Z68.41; Problem Code Type: ICD-10; Not Available [facility] 22:10:31 Body mass index 40+ - severely obese 198839166 Completed 201710/26/2017 Problem Code: V85.41; Problem Code Type: ICD-9; Not Available [facility] 22:10:33 Screenin g for malignan t neoplasm of colon Completed 201707/09/2020 ALICE OCAMPOMALLORY null, [employer] 11:56:43 Body mass index 30+ - obesity 627310308 Completed 201712/19/2019 Problem Code: Z68.39; Problem Code Type: ICD-10; Kiersten Mony, [employer] TECHNICIAN [address] [place], [address] , [employer] 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 2 11:56:43 Male erectile disorder Completed 201811/11/2021 ALICE DAMARISMALLORY null, [employer] 2 11:56:43 Large prostate [id number] Completed 201811/11/2021 Problem Code: N40.0; Problem Code Type: ICD-10; ALICE KO null, [employer] 2 11:56:43 Influenz a vaccine needed [id number] 06 Completed 201806/20/2019 Problem Code: Z23; Problem Code Type: ICD-10; ROBERT calloway, [employer] 2 07:55:47 [employer] license medical examinat ion Completed 201908/09/2019 Problem Code: Z02.4; Problem Code Type: ICD-10; ALICE KO null, [employer] 2 11:56:43 Otitis externa of left ear [id number] Completed 201912/19/2019 Problem Code: H60.332; Problem Code Type: ICD-10; Not Available [facility] 2 22:10:27 Acute suppurat mainor otitis media 852553090 Completed 201912/19/2019 Not Available [facility] 2 22:10:27 Influenz a vaccine needed [id number] 06 Completed 201912/19/2019 Problem Code: Z23; Problem Code Type: ICD-10; ROBERT calloway, [employer] 2 07:55:47 General examinat ion of patient Completed 201901/13/2022 ROBERT calloway, [employer] 2 07:55:47 Screenin g for malignan t neoplasm of prostate Completed 201911/11/2021 Problem Code: Z12.5; Problem Code Type: ICD-10; ALICE KO null, [employer] 2 11:56:44 Screenin g for malignan t neoplasm of colon Completed 201911/11/2021 ALICE BURNSR null, [employer] 2 11:56:43 [employer] license medical examinat ion Completed 202011/11/2021 Problem Code: Z02.4; Problem Code Type: ICD-10; ALICE KO null, [employer] 2 11:56:43 Influenz a vaccine needed [id number] 06 Completed 202001/13/2022 Problem Code: Z23; Problem Code Type: ICD-10; ROBERT RIOS null, [employer] 2 07:55:47 Body mass index 30+ - obesity 178559942 Completed 202011/11/2021 Problem Code: Z68.38; Problem Code Type: ICD-10; Kiersten Sykes APRN [address] [place], [address] , [employer] 5 09:35:49 Acute bronchit is 85878378 Completed 202011/11/2021 Problem Code: J20.9; Problem Code Type: ICD-10; ALICE KO null, [employer] 2 11:56:43 COVID-19 499672543 Completed 202111/11/2021 Problem Code: U07.1; Problem Code Type: ICD-10; ALICE KO null, [employer] 2 11:56:44 Increase d frequenc y of urinatio n 843215987 Completed 202111/11/2021 Problem Code: R35.0; Problem Code Type: ICD-10; ALICE KO null, [employer] 2 11:56:43 Vitamin D deficien cy 88445537 Active 2024 Kiersten Sykes APRN [address] [place], [address] , [employer] 5 09:35:03 Body mass index 30+ - obesity 238233329 Active 2024 Kiersten Sykes APRN [address] [place], [address] , [employer] 5 09:35:49 Postoper ative wound infectio n 79195916 Active 2024 Kiersten Sykes APRN [address] [place] [address], [address] [place] [address] , [employer] 5 15:00:09 Urinary tract infectio us disease 78538893 Active 2024 Kiersten Sykes APRN [address] [place] [address], [address] [place] [address] , [employer] 5 17:17:20 Acute back pain with sciatica 389812153 Active 2024 NEEMA Alberto [address] [place] [address], [address] [place] [address] , [employer] 5 09:18:20 Postural urinary incontin ence 193939568 Active 2024 NEEMA Alberto [address] [place] [address] , [employer] 5 09:20:27 Acute urinary tract infectio n 739867359 Active 2024 NEEMA Alberto [address] [place] [address], [address] [place] [address] , [employer] 09:24:24 Problem Notes None recorded. Procedures Surgical History Date Name Laterality Status Provider Name and Address Organization Details Recorded Time 11/10/19 Cryosurgery Warts/Skin Tags completed Kiersten Sykes APRN [address] [place] [address], [address] [place] [address], [employer] 11/09/2022 17:35:49 Prostatectomy (turp) completed Kiersten Sykes APRN [address] [place] [address], [employer] 09/20/2024 18:00:00 Imaging Results None recorded. Procedure Notes None recorded. Medical Equipment None Reported. Allergies No known drug allergies Medications Name Sig Start Date Stop Date Status Note LastModified by Organization Details LastModified Time cyclobenzap rine 10 mg tablet 1 pill po q hs prn muscle cramps 11/29 completed Not Available Not Available Not Available metformin 500 mg tablet TAKE ONE TABLET BY MOUTH ONCE DAILY IN THE EVENING WITH A MEAL 2024 active Not Available Not Available Not Avai lable promethazin e-DM 6.25 mg-15 mg/5 mL oral syrup Take 1 teaspoon by mouth q 4 to 6 hr 04/11 completed Not Available Not Available Not Available Depo-Medrol 40 mg/mL suspension for injection ADMINISTE R 2mL VIA INTRAMUSC ULAR ROUTE ONCE 2024 active Not Available Not Available Not Avai lable azithromyci n 250 mg tablet take 1 tablet (250 mg) by oral route once daily 04/15 completed Not Available Not Available Not Available pravastatin 40 mg tablet Take 1 tablet(s) by mouth at bedtime 06/19 completed Not Available Not Available Not Available metoprolol succinate ER 50 mg tablet,exte nded release 24 hr TAKE ONE TABLET BY MOUTH ONCE DAILY 2024 active Not Available Not Available Not Avai lable meloxicam 15 mg tablet Take 1 tab by mouth once daily for inflammat ion. 01/05 completed Not Available Not Available Not Available lisinopril 20 mg tablet Take 1 tablet by mouth once daily for blood pressure 09/24 completed Not Available Not Available Not Available Nexium 40 mg capsule,del ayed release Take 1 capsule(s ) by mouth daily 05/30 completed Not Available Not Available Not Available potassium chloride ER 10 mEq tablet,exte nded release Take 1 tablet(s) by mouth daily 01/20 completed Not Available Not Available Not Available allopurinol 100 mg tablet TAKE ONE TABLET BY MOUTH ONCE DAILY 2024 active Not Available Not Available Not Avai lable ciprofloxac in 500 mg tablet TAKE ONE TABLET BY MOUTH EVERY TWELVE HOURS FOR 3 DAYS start taking 03/25/202407/21 completed Not Available Not Available Not Available Tamiflu 75 mg capsule Take 1 capsule(s ) by mouth bid for 5 days 03/17 completed Not Available Not Available Not Available aspirin 81 mg tablet,latha yed release Take 1 tablet(s) by mouth daily 2017 active Not Available Not Available Not Avai lable Kenalog 40 mg/mL suspension for injection Take 1 mL by injection route. 07/13 completed Not Available Not Available Not Available oxycodone-a cetaminophe n 5 mg-325 mg tablet TAKE ONE TABLET BY MOUTH EVERY 6 HOURS NEEDED FOR MODERATE PAIN USING A 4-6 ON PAIN SCALE 07/21 completed Not Available Not Available Not Available ceftriaxone 1 gram solution for injection Take 1 g by injection route. 09/28 completed Not Available Not Available Not Available Diflucan 100 mg tablet Take 1 tablet(s) by mouth daily 08/14 completed Not Available Not Available Not Available benzonatate 100 mg capsule take 1 capsule (100 mg) by oral route 3 times per day prn 08/12 completed Not Available Not Available Not Available cephalexin 500 mg capsule TAKE ONE CAPSULE BY MOUTH EVERY 6 HOURS BY MOUTH FOR 7 DAYS 01/14 completed Not Available Not Available Not Available lisinopril 10 mg tablet take 1 tablet (10 mg) by oral route once daily 04/27 completed Not Available Not Available Not Available indomethaci n 25 mg capsule TAKE 1 CAPSULE BY MOUTH THREE TIMES DAILY 09/24 completed Not Available Not Available Not Available lisinopril 30 mg tablet TAKE ONE TABLET BY MOUTH ONCE DAILY 2024 active Not Available Not Available Not Avai lable pravastatin 20 mg tablet TAKE ONE TABLET BY MOUTH AT BEDTIME 2024 active Not Available Not Available Not Avai lable mupirocin 2 % topical ointment APPLY A SMALL AMOUNT TO THE AFFECTED AREA BY TOPICAL ROUTE 2 TIMES PER DAY active Not Available Not Available No t Available furosemide 20 mg tablet TAKE ONE TABLET BY MOUTH ONCE DAILY active Not Available Not Available No t Available Viagra 100 mg tablet take 1 tablet (100 mg) by oral route once daily as needed approxima tely 1 hour before sexual activity 07/09 completed Not Available Not Available Not Available ibuprofen 600 mg tablet Take 1 tablet every day by oral route for 1 day. 2024 active Not Available Not Available Not Avai lable levofloxaci n 750 mg tablet Take 1 tablet every day by oral route for 5 days, for UTI. 10/07 completed Not Available Not Available Not Available Vitamin D2 1,250 mcg (50,000 unit) capsule TAKE ONE CAPSULE BY MOUTH ONCE WEEKLY 2024 active Not Available Not Available Not Avai lable cefdinir 300 mg capsule Take 1 capsule(s ) by mouth q12h for 10 days 02/21 completed Not Available Not Available Not Available amoxicillin 875 mg-potassiu m clavulanate 125 mg tablet take 1 tablet by oral route every 12 hours for 10 days with food 04/08 completed Not Available Not Available Not Available cyclobenzap rine 5 mg tablet Take 1 tablet every day by oral route at bedtime. 10/29 completed Not Available Not Available Not Available Ciprodex 0.3 %-0.1 % ear drops,suspe nsion instill 3 drops into affected ear(s) by otic route 2 times per day for 7 days 12/06 completed Not Available Not Available Not Available tadalafil 5 mg tablet TAKE ONE TABLET BY MOUTH EVERY DAY active Not Available Not Available No t Available tadalafil 20 mg tablet TAKE ONE TABLET BY MOUTH EVERY DAY administe r approxima tely 60 minutes BEFORE sexual activity DO not USE more THEN ONE DOSE in 24 hours active Not Available Not Available No t Available sodium,pota ssium,mag sulfates 17.5 gram-3.13 gram-1.6 gram oral soln MIX AND TAKE ACCORDING TO PACKAGE AND PRESCRIBE R INSTRUCTI ONS. 07/21 completed Not Available Not Available Not Available Vitals Date Recorded Body height Body mass index (BMI) Body weight Body temperature Heart rate Oxygen saturation Oxygen saturation in Arterial blood by Pulse oximetry Systolic And Diastolic Provider Name and Address Organization Details Last Updated DateTime 5 187.96 cm 34.7 kg/m2 734874. 66 g 97.9 [degF] 68 /min 97 % 97 % 138/74 mm[Hg] [facility] 5 09:29:25 Date Recorded Body height Body mass index (BMI) Body weight Body temperature Heart rate Oxygen saturation Oxygen saturation in Arterial blood by Pulse oximetry Systolic And Diastolic Provider Name and Address Organization Details Last Updated DateTime 5 187.96 cm 32.6 kg/m2 310469. 46 g 101.1 [degF] 85 /min 95 % 95 % 135/77 mm[Hg] ALICE [employer] 5 14:44:07 Date Recorded Body height Body mass index (BMI) Body weight Body temperature Heart rate Oxygen saturation Oxygen saturation in Arterial blood by Pulse oximetry Systolic And Diastolic Provider Name and Address Organization Details Last Updated DateTime 5 187.96 cm 32.6 kg/m2 569858. 46 g 97.8 [degF] 70 /min 98 % 98 % 115/59 mm[Hg] ALICE [employer] 5 10:37:17 Date Recorded Body height Body mass index (BMI) Body weight Body temperature Heart rate Oxygen saturation Oxygen saturation in Arterial blood by Pulse oximetry Systolic And Diastolic Provider Name and Address Organization Details Last Updated DateTime 5 187.96 cm 33.6 kg/m2 558640. 76 g 97.7 [degF] 68 /min 97 % 97 % 155/88 mm[Hg] Amanda [facility] [email or web address] 5 09:02:56 Social History Question Answer Notes LastModified by Organizat ion Details LastModified Time Tobacco Smoking Status Never Smoker ROBERT calloway [employer] 01/13/2022 07:57:13 Do You Have An Advance Directive? No Information n ot available 11/11/2021 Is Your Home Air Conditioned? Yes Information not available 11/11/2021 Do You Wear A Helmet When Biking? No Information not available 11/11/2021 Are You Blind Or Do You Have Difficulty Seeing? No Information n ot available 11/11/2021 Are You A Caregiver? No Information not available 11/11/2021 In The 14 Days Before Symptom Onset, Have You Had Close Contact With A Laboratory-confirm ed COVID-19 While That Case Was Ill? No Information n ot available 11/11/2021 In The 14 Days Before Symptom Onset, Have You Had Close Contact With A Person Who Is Under Investigation For COVID-19 While That Person Was Ill? No Information not available 11/11/2021 Have You Been To An Area Known To Be High Risk For COVID-19? No Information not available 11/11/2021 Are You Deaf Or Do You Have Serious Difficulty Hearing? No Information not available 11/11/2021 What Type Of Diet Are You Following? DIABETIC Information n ot available 11/11/2021 Have There Been Any Changes To Your Family Or Social Situation? No Information no t available 11/11/2021 Are There Any Guns Present In Your Home? No Information not available 11/11/2021 Do You Have A Medical Power Of Tubular Stock Glass Bulb Machine Former? No Information not available 11/11/2021 What Was The Date Of Your Most Recent Tobacco Screening? 10/03/2024 [email or web address] Information not available 10/03/2024 Do You Have Any Pets? Yes Information not available 11/11/2021 What Is Your Relationship Status? Information not available 11/11/2021 Do You Use Your Seat Belt Or Car Seat Routinely? Yes Information not available 11/11/2021 Do You Have Smoke And Carbon Monoxide Detectors In Your Home? Yes Information not available 11/11/2021 Are You Passively Exposed To Smoke? No Information no t available 11/11/2021 Are There Any Smokers In Your House? No Information not available 11/11/2021 Do You Participate In Social Media? Yes Information not available 11/11/2021 Do You Use Sunscreen Routinely? No Information not available 11/11/2021 Has Tobacco Cessation Counseling Been Provided? No Information not available 11/11/2021 Have You Recently Traveled Abroad? No Information not available 11/11/2021 Do You Have Difficulty Walking Or Climbing Stairs? No Information not available 11/11/2021 Are You Currently In School? No Information not available 11/11/2021 Do You Have Any Dietary Restrictions? No Information not available 11/11/2021 Sex: Male Functional Status Question Answer Note LastModified by Organizat ion Details LastModified Time Do you use any illicit or recreational drugs? No Information not available 11/11/2021 Do you or have you ever used any other forms of tobacco or nicotine? No Information not available 11/11/2021 What is your level of alcohol consumption? None Information not available 11/11/2021 Are you currently employed? Yes Information not available 11/11/2021 Do you have transportation difficulties? No Information not available 11/11/2021 Are you able to walk independently without assistance or assistive devices? YESWOREST Information not available 11/11/2021 Do you have difficulty doing errands alone? No Information not available 11/11/2021 Are you able to care for yourself independently? Yes Information not available 11/11/2021 Do you have difficulty dressing, bathing, grooming, or toileting? No Information not available 11/11/2021 Mental Status Question Answer Note LastModified by Organization D etails LastModified Time Do you have difficulty concentrating, remembering or making decisions? No Information no t available 11/11/2021 Family History Relationship Description Onset Age of this Age Resolved Age Notes LastModified by Organization Details LastModified Time Unspecified Relation Family history of congestive heart failure [email or web address] Not available 01/13 07:55:56 Unspecified Relation Family history of malignant neoplasm of testis [email or web address] Not available 01/13 07:56:01 Unspecified Relation Family history of malignant neoplasm [email or web address] Not available 01/13 07:56:05 Unspecified Relation Family history of ischemic heart disease [email or web address] Not available 01/13 07:56:09 Medical History Condition Response Diabetes Y Acid Reflux (GERD) Y Cancer Y High Cholesterol Y Hypertension Y Immunizations Vaccine Type Date Status Note Provider Nam lee and Address Organization Details Recorded Time Influenza, split virus, quadrivalent, PF 2 completed Kiersten Sykes APRN [address] [place], [address], [place] [employer] 11/16/2021 18:14:40 Influenza, split virus, quadrivalent, PF 3 completed Kiersten Sykes APRN [address] [place], [address], [employer] 01/14/2023 12:48:12 zoster recombinant 4 completed ALICE MYNEAR null, [employer] 09/25/2023 13:32:46 COVID-19, mRNA, LNP-S, PF, 30 mcg/0.3 mL dose 1 completed ALICE MYNEAR null, [employer] 02/24/2022 10:49:30 COVID-19, mRNA, LNP-S, PF, 30 mcg/0.3 mL dose 1 completed ALICE MYNEAR null, [employer] 02/24/2022 10:49:30 Influenza, split virus, quadrivalent, preservative 8 completed Not Available [facility] 10/17/2021 23:57:43 Influenza, split virus, quadrivalent, PF 1 completed Not Available [facility] 10/17/2021 23:57:43 Influenza, split virus, trivalent, preservative 8 completed Not Available [facility] 01/14/2023 10:38:46 Influenza, split virus, quadrivalent, preservative 0 completed Not Available [facility] 01/14/2023 10:38:46 Influenza, split virus, trivalent, preservative 9 completed Not Available [facility] 01/14/2023 10:38:46 Influenza, split virus, trivalent, PF 4 completed Elena Self null, [employer] 02/03/2024 08:27:32 zoster recombinant 2 completed ALICE MYNEAR null, [employer] 02/24/2022 10:49:30 Influenza, split virus, trivalent, preservative 6 completed ALICE MYNEAR null, [employer] 02/24/2022 10:49:30 COVID-19, mRNA, LNP-S, PF, 30 mcg/0.3 mL dose 1 completed ALICE MYNEAR null, [employer] 02/24/2022 10:49:30 COVID-19, mRNA, LNP-S, bivalent, PF, 30 mcg/0.3 mL dose 2 completed ALICE MYNEAR null, [employer] 02/24/2022 10:49:30 Influenza, split virus, quadrivalent, PF 9 completed ALICE MYNEAR null, [employer] 02/24/2022 10:49:30 pneumococcal polysaccharide PPV23 5 completed ALICE MYNEAR null, [employer] 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 Administra tion of influenza vaccine 40940128 Z23 [id number] Kiersten Sykes [address] 0 02/24/2022 10:26:41 02/24/2022 11:15:04 Type 2 diabetes mellitus without complication 007688313 E11.9 Contiue current medication s. DM diet emphasized . [id number] [place] [address] 04/03/2022 16:47:40 04/03/2022 17:18:41 Low back pain 136057277 M54.50 Muscle spa sm of thoracic back 7334812198 31406 M62.830 Rest, massage with voltaren gel and apply ice TID. Avoid. heavy lifting May take Ibu prn. To RTC or call for failure to improve. [id number] [place] [address] 07/13/2022 17:10:41 07/13/2022 18:00:15 Type 2 diabetes mellitus without complication 650003604 E11.9 Continue current medication s. DM diet emphasized . [id number] [place] [address] 10/29/2022 16:55:38 10/29/2022 17:33:07 Mononeuropathy due to type 2 diabetes mellitus 333219748 E11.41 Continue current meds, low carb diet and weight loss were encouraged . 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 Hypertensive disorder 38 513760 I10 Increase lisinopril to 30 mg daily, low salt diet and exercise encouraged . [id number] [place] [address] 11/09/2022 16:45:00 11/12/2022 08:04:06 Neoplasm of uncertain behavior of skin 77305135 D48.5 Cryo to one lesion on right upper back Pain in le ft lower limb 507524450 M79.605 Elevate, MALCOLM hose, continue ASA, start keflex to treat as possible cellulitis but DVT must be ruled out. [id number] [place] [address] 01/14/2023 10:37:59 01/14/2023 11:48:03 Mononeuropathy due to type 2 diabetes mellitus 301721558 E11.41 Continue current meds, low carb diet and weight loss were encouraged . Hypertensive disorder 38 903853 I10 DASH diet. Exercise. He is to have his check his BP at home daily for next week and notify me if it continues to trend >140/90. Mixed hyperlipidemia 267 272927 E78.2 Continue statin. Adult heal th examination 483806430 Z00.00 Nocturia 863972802 R35.1 Body mass index 30+ - obesity 918087115 Z68.34 Administra tion of influenza vaccine 69554554 Z23 Acute left otitis media 349692036 H66.92 Patient presents with signs/symp toms of otitis media. Will treat as below. Supportive care reviewed: humidifier use, raise HOB, saline nasal spray, encourage PO fluids. Recommende d acetaminop hen/ibupro fen PRN pain/fever Follow up as below. 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 [id number] [place] [id number] 09/25/2023 11:30:16 09/25/2023 12:37:46 Mononeuropathy due to type 2 diabetes mellitus 219700356 E11.41 Continue current meds, low carb diet and weight loss were encouraged . Hypertensive disorder 38 801597 I10 DASH diet. Exercise. He is to have his check his BP and glucose at home. Mixed hyperlipidemia 267 694116 E78.2 Continue statin. 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 Type 2 palma betes mellitus without complication 917583721 E11.9 Continue current medication s. DM diet emphasized . Essential hypertension 30843691 I10 [id number] Honey Yates NP [place] [address] 01/30/2024 14:25:44 01/30/2024 15:57:33 Administration of influenza vaccine 71322234 Z23 [id number] Kiersten Sykes APRN [place] [address] 0 07/21/2024 09:23:10 07/21/2024 10:22:43 Mononeuropathy due to type 2 diabetes mellitus 601670121 E11.41 Continue current meds, low carb diet and weight loss were encouraged . Dm eye exam encouraged . Hypertensive disorder 38 926478 I10 DASH diet. Exercise. He is to have his check his BP and glucose at home. Mixed hyperlipidemia 267 960033 E78.2 Continue statin. 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 Vitamin D deficiency 347 77087 E55.9 69221 Body mass index 30+ - obesity 138758605 E66.9 11007091 Active immunization 3387 9002 Z23 [id number] Kiersten Sykes APRN [place] [address] 0 09/25/2024 14:29:40 09/25/2024 16:04:00 Urinary tract infectious disease 86911654 N39.0 [id number] Patient presents with symptoms of UTI. Results of dipstick were positive for UTI. Advised to drink clear fluids, reduce sexual activity, Tylenol for pain and take prescribed medication s as instructed . Patient encouraged to follow up in 3 days or proceed to ER over the weekend for progressio n of sx. Hydration and fever control emphasized . Postoperat mainor wound infection 36412352 T81.49XA 34183 Right lower abdomen. Cleanse with hibiclens and apply mupirocin BID. [id number] Kiersten Sykes APRN [place] [address] 0 09/28/2024 10:23:54 09/28/2024 10:55:23 Urinary tract infectious disease 96137721 N39.0 [id number] Patient presents with symptoms of UTI. Results of dipstick were positive for UTI. Advised to drink clear fluids, reduce sexual activity, Tylenol for pain and take prescribed medication s as instructed . He has failed OP treatment - referred to ER via POV with for further eval and Urology consult. Postoperat mainor wound infection 46645602 T81.49XA 95060 Right lower abdomen. Cleanse with hibiclens and apply mupirocin BID. [id number] NEEMA Alberto [address] [address] 10/03/2024 08:51:48 10/03/2024 09:43:12 Acute back pain with sciatica 229404098 M54.41 [id number] Feels that this back pain is unrelated to his UTI as it only occurs with movement when he gets up from a seated position and it causes a shooting pain down his right leg. Acute urin hayder tract infection 124149509 N39.0 [id number] Finished levofloxac in, now on cefadroxil from urology. 2 week course with follow-up CT scan on 10/14/24. Culture last week with Klebsiella . Continue current abx treatment. Follow-up with urology as scheduled and PCP as needed. Health Concerns Section Related Observation LastModified by Organization Detai ls LastModified Time None Recorded Concern Status LastModified by Organization Details LastModified Time None Recorded Advance Directives Directive N: Payers Insurance Date Sequence Insurance Name Policy Number Policy Reid Covered Member ID Reid Member ID Guarantor Name 10/02/[address] [facility] [id number] Scot Mayfield [id number] Scot Mayfield 07/23/2023 1 *SELF PAY* [employer] Shankar Mayfield 01/30/2024 1 [place] [id number] Scot Mayfield [id number] Scot Mayfield 01/30/2024 1 YANCY (INDEMNITY) [id number] Scot Mayfield [id number] Scot Mayfield Notes Date Note Type Note Provider Name and Address Organization Details Recorded Time 5 text/html HyperlipidemiaReported by PatientHPIFor duration, patient reportschronic. For risk factors, patient reportsfamily history of premature arteriosclerotic cardiovascular disease,diabetes,hypertensi on,obesity,low hdl level,high sensitivity c-reactive protein: ___, andconsumption of saturated fats and trans-fatty acids. For control, patient reportsimproving. For adherence to treatment plan, patient reportsfollows recommended diet,exercises, andtakes medications as prescribed. For complications, patient reportsno coronary artery disease,no peripheral artery disease, andno cardiovascular disease. Hypertension F/UReported by PatientHPIFor medications, patient reportstaking medications as directedandno side effects from medication. For lifestyle, patient reportsregular exerciseandlimits sodium intake. For associated symptoms, patient reportsno dizziness,no lightheadedness,no chest pain,no shortness of breath,no palpitations,no edema,no calf pain with exertion, andno headache. DiabetesReported by PatientHPIFor associated symptoms, patient reportsweight gain (12 lbs)but reportsno dizziness,no sweats,no headaches,no confusion,no increased thirst,no increased appetite,no increased urination,no blurred vision,no numbness of feet,no calluses on feet,no fatigue,no blurred vision, andno paresthesias. For duration, patient reportschronic. For control, patient reportsusually well controlled,improved since last visit,treated with diet and oral medications,hemoglobin a1c has been less than 7,hemoglobin a1c goal is less than 7,ldl usually runs 100-120, goal is less than 100, andbp usually runs 135-140/85-90, goal is less than 120/80. For compliance, patient reportscompliant with medications,compliant with follow-up visits,compliant with diet,compliant with physical activity, andno side effects from medications. For self care, patient reportsmonitoring glucose weekly,seeing eye doctor regularly,checking feet regularly, andtaking aspirin daily.Complications and Co-morbiditiesFor chronic complications, patient reportshypertension: yesandhyperlipidemia: yes..ROS as noted in the HPI Scot is scheduled for a total prostatectomy in August at due to adenocarcinoma of the prostate.Gout well controlled on allopurinol. A1c is stable on metformin. BP control within goal. Also has a hx Vitamin D deficiency. Kiersten Sykes, AUTO EMISSIONS TECHNICIAN [address] [facility], [place], [address], [employer] 07/21/2024 12:23:08 5 text/html Lower Urinary Tract Symptoms (LUTS)Reported by PatientHPIFor context, patient reportsabnormal voiding frequencybut reportsdenies excessive fluid intake,denies excessive caffeine intake,denies new medication treatment,changes in voiding affect quality of life,has seen urologist,has previously used alpha blockers,obesity,previous turp,previous radical prostatectomy, anddate of surgery: (08/2024). For associated symptoms, patient reportschills,fever,nausea, temperature,post void dribbling,urgency,frequency ,dysuria,stress incontinence,urine odor,pelvic pain, andsuprapubic painbut reportsno abdominal pain,no groin pain,no flank pain, andno low back pain. For location, patient reportsbladder. For quality, patient reportsdull,tender, andpressure. For severity, patient reportsmoderate. For onset/timing, patient reportsconstant. For duration, patient reportsacuteand< 1 week.ROS as noted in the HPI Scot underwent robotic assisted TURP at 3 weeks ago for prostate adenocarcinoma. He was discharged with a lu which was removed approx 10 days. He reports 2 days ago he developed fever, chills, nausea, urinary frequency urgency and incontinence. He also has a lap surgical site in RLQ that has developed mild erythema and scant purulent drainage. Kiersten Sykes, AUTO EMISSIONS TECHNICIAN [address] [facility], [place], [address], [employer] 09/25/2024 17:17:41 5 text/html Lower Urinary Tract Symptoms (LUTS)Reported by PatientHPIFor context, patient reportsabnormal voiding frequencybut reportsdenies excessive fluid intake,denies excessive caffeine intake,denies new medication treatment,changes in voiding affect quality of life,has seen urologist,has previously used alpha blockers,obesity,previous turp,previous radical prostatectomy, anddate of surgery: (08/2024). For associated symptoms, patient reportschills,fever,nausea, temperature,post void dribbling,urgency,frequency ,dysuria,stress incontinence,urine odor,pelvic pain, andsuprapubic painbut reportsno abdominal pain,no groin pain,no flank pain, andno low back pain. For location, patient reportsbladder. For quality, patient reportsdull,tender, andpressure. For severity, patient reportsmoderate. For onset/timing, patient reportsconstant. For duration, patient reportsacuteand< 1 week.ROS as noted in the HPI Scot underwent robotic assisted TURP at 3 weeks ago for prostate adenocarcinoma. He was discharged with a lu which was removed approx 10 days. He reports 2 days ago he developed fever, chills, nausea, urinary frequency urgency and incontinence. He also has a lap surgical site in RLQ that has developed mild erythema and scant purulent drainage. Follow up 09/28/24: Scot's fever has resolved and he has fewer leukocytes and nitrates in his urine today. Unfortunately, he developed significant low back and rectal pain with hematuria over the weekend. His surgical site has opened and is draining despite use of levaquin, rocephin, and mupirocin. I have d/w Scot and his that I believe he needs CT abd/pelvis and labs in ER today to rule out pelvic abscess, hemorrhage, and Urosepsis etc. He declined EMS transport. will drive him. Kiersten Sykes APRN [address] [place], [address], [employer] 09/28/2024 11:07:49 5 text/html Patient here with complaints of right side low back pain that radiates down his right leg with movement from a seated position to standing. Also being treated currently for UTI. Was seen in ER at on 09/28. NEEMA Alberto [address] [place], [address], [employer] 10/03/2024 11:45:16
--- OUTSIDE RECORDS SUMMARY | 2024-12-18 10:00 | XMS_ITS | Clinical Summary ---
Author Organization [facility] [place] Address [address] [place] [address] Care Team Providers Care Rotoformer Backtender Name Role Phone Sykes, Kiersten Freddie CARNEY Primary Care Provider [phone] Allergies No known active allergies Medications tadalafil (Cialis) 5 MG tablet Take 1 tablet by mouth daily. 5 Active tadalafil (Adcirca) 20 MG tablet TAKE ONE TABLET BY MOUTH EVERY DAY administer approximately 60 minutes BEFORE sexual activity DO not USE more THEN ONE DOSE in 24 hours 5 Active pravastatin (Pravachol) 20 MG tablet Take 1 tablet by mouth nightly. 5 Active metoprolol succinate XL (Toprol-XL) 50 MG 24 hr tablet Take 1 tablet by mouth daily. 5 Active metFORMIN (Glucophage) 500 MG tablet TAKE ONE TABLET BY MOUTH ONCE DAILY IN THE EVENING WITH A MEAL 5 Active lisinopril 30 MG tablet Take 1 tablet by mouth daily. 5 Active furosemide (Lasix) 20 MG tablet Take 1 tablet by mouth daily. 4 Active ergocalciferol 1.25 MG (70700 UT) capsule Take 1 capsule by mouth 1 time per week. 5 Active allopurinol (Zyloprim) 100 MG tablet Take 1 tablet by mouth daily. 5 Active acetaminophen (Tylenol) 500 MG tablet Take 2 tablets by mouth every 6 hours as needed for pain. 50 tablet 5 Active ibuprofen 400 MG tablet Take 1 tablet by mouth every 6 hours as needed for moderate pain. 30 tablet 5 Active methocarbamol (Robaxin) 500 MG tablet Take 1 tablet by mouth 4 times a day as needed for muscle spasms. 30 tablet 5 Active senna-docusate (Inge-Colace) 8.6-50 MG tablet Take 1 tablet by mouth 2 times a day. 15 tablet 5 Active Additional Information Patient not taking.Reported on 10/14/2024 naloxone (Narcan) 4 mg/0.1 mL nasal spray 1. Give 1 spray in nostril for no/slow breathing or cannot wake after opioid use 2. Call 911 3. Repeat in other nostril if symptoms continue 1 each 5 Active Additional Information Patient not taking.Reported on 10/14/2024 methocarbamol (Robaxin) 500 MG tablet Take 1.5 tablets by mouth 3 times a day as needed for muscle spasms for up to 10 days. 45 tablet Active mupirocin (Bactroban) 2 % ointment apply a small amount to the affected area by topical route 2 times per day Active tadalafil (Cialis) 5 MG tabletIndicatio ns:Erectile dysfunction Take 1 tablet by mouth daily as needed for erectile dysfunction. 30 tablet 1 5 Active Active Problems Problem Noted Date Diagnosed Date Prostate cancer 09/07/2024 Obesity (BMI 35.0-39.9 without comorbidity) 05/12 Encounters Date Type Department Care Team Description 10/14/2024 10:00 AM EDT Office Visit [facility] [address] [place] [address] Kurt Casiano MD Erectile dysfunction 10/14/2024 6:18 AM EDT - 10/14/2024 11:59 PM EDT Hospital Encounter [facility] [address] [place] [id number] Postoperative pain Discharge Disposition: Home or Self Care 10/14/2024 Travel 10/07/2024 Travel 10/01/2024 Telephone [facility] [address] [place] [address] Kurt Casiano MD 09/28/2024 2:29 PM EDT - 09/28/2024 7:02 PM EDT Emergency [facility] [address] [place] [address] Jamie Garcia MD Acute cystitis with hematuria (Primary Dx); Postoperative pain Discharge Disposition: Home or Self Care 09/28/2024 Travel 09/23/2024 [facility]phone [facility] [address] [place] [address] Radha Schafer LPN from Last 3 Months Family History Medical History Relation Name Comments Other cancer Brother 1 Prostate cancer Brother 1 Heart attack Brother 2 Heart attack Father Heart disease Father Cardiac disorder Mother Heart disease Mother unknown cancer Sister Malig Hyperthermia Neg Hx Relation Name Status Comments Brother 1 Brother 2 Father Mother Sister Social History Tobacco Use Types Packs/Day Years Used Date Smoking Tobacco: Never Smokeless Tobacco: Never Tobacco Cessation:Counseling Given: Not Answered Alcohol Use Standard Drinks/Week Comments No 0 (1 standard drink = 0.6 oz pur e alcohol) PHQ-2 Answer Date Recorded Patient Health Questionnaire-2 Score 0 10/14/2024 PHQ-9 Answer Date Recorded Patient Health Questionnaire-9 Score 0 05/27/2024 Sex and Gender Information Value Date Recorded Sex Assigned at Not on file Legal Sex Male 7:09 PM EDT Gender Identity Not on file Sexual Orientation Not on file Last Filed Vital Signs Vital Sign Reading Time Taken Comments Blood Pressure 131/74 10/14/2024 10:00 AM EDT Pulse 70 10/14/2024 10:00 AM EDT Temperature 36.7 C (98 F) 10/14/2024 10:00 AM EDT Respiratory Rate 16 09/28/2024 5:19 PM EDT Oxygen Saturation 97% 10/14/2024 10:00 AM EDT Inhaled Oxygen Concentration - - Weight 115 kg (253 lb 8.5 oz) 10/14/2024 10:00 A M EDT Height 185.4 cm (6' 1 ) 10/14/2024 10:00 AM EDT Body Mass Index 33.45 10/14/2024 10:00 AM EDT Plan of Treatment Upcoming Encounters Date Type Department Care Team (Latest Contact Info) Description 12/30/2024 10:00 AM EST Clinical Support [facility] [address] [place] [address] 12/30/2024 10:20 AM EST Office Visit [facility] [address] [place] [address] Kurt Casiano MD [address] [place] [id number] Health Maintenance Due Date Last Done Comments [facility]-Hepatitis C Screening 1959 [facility]-/Child/Adol SDOH Screenings 1959 [facility]- SDOH Screenings 1977 [facility]-Adult SDOH Screenings 1977 [facility]-DTaP,Tdap,and Td Vaccines (1 - Tdap) 1978 CT Colonography 02/15/2004 Colonoscopy 02/15/2004 FIT-DNA 02/15/2004 FIT 02/15/2004 FOBT 02/15/2004 Sigmoidoscopy 02/15/2004 [facility]-Colorectal Cancer Screening 02/15/2004 [id number] Vaccine ( season) 2024 02/01/2022, 11/03/2020, 06/05/2020, Additional history exists [facility]-Influenza Vaccine (#1) 10/12/202402/02, 01/14/2023, 11/11/2021, Additional history exists [facility]-Pneumococcal Vaccine: 50+ Years (2 of 2 - PCV) 07/21/2025 07/21/2024 [facility]-Depression Screening 10/14/2025 10/14/2024, 05/12 [facility]-RSV Vaccine: 60+ Years or (1 - 1-dose 75+ series) 2034 [facility]-Zoster Vaccines Completed 09/25/2023, [facility]-Obesity Intervention Completed 025, 09/16/2024, 06/17/2024, Additional history exists HPV Vaccines Aged Out No longer eligi ble based on patient's age to complete this topic [facility]-HIB Vaccines Aged Out No longer e ligible based on patient's age to complete this topic [facility]-Hepatitis A Vaccines Aged Out No longer eligible based on patient's age to complete this topic [facility]-IPV Vaccines Aged Out No longer e ligible based on patient's age to complete this topic [facility]-Rotavirus Vaccines Aged Out No lo nger eligible based on patient's age to complete this topic Goals Goal Patient Goal Type Associated Problems Recent Progress Patient-Stated? Author Autogenerat ed Goal Care Plan Autogenerated Problem No Carlie Amos Procedures Procedure Name Priority Date/Time Associated Diagnosis Comments CT ABDOMEN PELVIS W IV CONTRAST Routine 10/14/2024 7:20 AM EDT Postoperative pain CT ABDOMEN PELVIS W IV CONTRAST STAT 09/28/2024 3:09 PM EDT SEND ANGELA MESSAGE STAT 09/28/2024 2: 39 PM EDT URINALYSIS MICROSCOPIC FOR UA REFLEX STAT 09/28/2024 2:39 PM EDT URINE HAMPTON PANEL STAT 09/28/2024 2:39 PM EDT URINALYSIS WITH REFLEX MICROSCOPIC STAT 09/28/2024 2:39 PM EDT URINALYSIS WITH REFLEX MICROSCOPIC AND CULTURE STAT 09/28/2024 2:39 PM EDT URINE CULTURE STAT 09/28/2024 2:39 PM EDT C-REACTIVE PROTEIN, PLASMA STAT 09/28/2024 2:28 PM EDT COMPREHENSIVE METABOLIC PANEL, PLASMA STAT 09/28/2024 2:28 PM EDT CBC WITH AUTO DIFFERENTIAL STAT 09/28/2024 2:28 PM EDT from Last 3 Months Results * CT Abdomen Pelvis w IV Contrast (10/14/2024 7:20 AM EDT) Only the most recent of2 resultswithin the time period is included. Anatomical Region Laterality Modality Abdomen, Pelvis Computed Tomogra phy Impressions 10/14/2024 9:14 AM EDT Postoperative change associated with prior prostatectomy. Reduced conspicuity of the left anterior pelvic collection, with residual thin tract extending toward the anterior wall of the pelvis, possibly representing resolving abscess. Trace stranding within the pelvis, improved from comparison. However, there is stranding adjacent to the sigmoid in the region of multiple diverticula. Superimposed diverticulitis is difficult to exclude. Correlate with symptomatology. Unchanged indeterminate right adrenal gland nodule. CRITICAL RESULT: No. COMMUNICATION: Per this written report. Drafted by Nedra Whitt MD on 10/14/2024 8:57 AM Final report signed by Nedra Whitt MD on 10/14/2024 9:14 AM Narrative 10/14/2024 9:14 AM EDT CLINICAL INDICATION: pelvic abscess, post-op pt TECHNIQUE: Multiple axial CT images were obtained from lung bases through upper thighs following administration of IV contrast, Omnipaque 300, 100 mL. Reformatted images in the coronal and sagittal planes were generated from the axial data set to facilitate diagnostic accuracy. Total DLP (Dose-Length Product): 746.56 mGy.cm. Please note: The reported value represents the total of one or more individual components during the CT acquisition on this date and at this time, and as such, the same value may appear in more than one CT report depending on the interpreting/reporting physicians. COMPARISON: CT abdomen/pelvis from 09/28/2024 FINDINGS: Lower Chest: No suspicious findings. Solid Abdominal Organs: Hepatic parenchyma is homogeneous. No suspicious hepatic mass. Cholelithiasis without evidence of cholecystitis. No intrahepatic or extrahepatic biliary ductal dilatation. A 1.5 cm indeterminate nodule within the right adrenal gland is unchanged. Left adrenal gland is unremarkable. Bilateral renal calculi, measuring up to 11 mm at the superior pole of the left kidney and 6 mm at the inferior pole of the right kidney. No suspicious renal mass. No hydronephrosis. Pancreatic parenchyma is homogeneous. No pancreatic ductal dilatation. The spleen is nonenlarged. GI Tract/Mesentery/Peritoneum: Stomach is unremarkable. Small and large bowel maintain expected caliber and contour. No bowel obstruction. Appendix is unremarkable. Colonic diverticulosis. A small amount of stranding adjacent to multiple diverticula of the sigmoid is less conspicuous than on comparison, however superimposed diverticulitis is difficult to exclude. No mesenteric mass or peritoneal nodularity. Pelvic Viscera: Urinary bladder is unremarkable. Prior prostatectomy. Reduced conspicuity of the collection within the anterior left pelvis, with residual small collection now measuring up to 2.1 cm (previously 3.7 cm when measured in the same plane, series 3 image 284). No gas within the collection on current exam, however there is a thin residual tract extending toward the anterior wall of the pelvis. Well-defined possible fluid collection within the right inguinal canal as the right testicle appears to be within the scrotum. Lymph Nodes/Vasculature: Prominent but nonenlarged pelvic lymph nodes on the left may be reactive. Aortoiliac vasculature maintains normal caliber and contour. The portosplenic confluence is patent. Free Fluid: Trace stranding and fluid in the pelvis, reduced from comparison. Musculoskeletal and Body Wall: Subcutaneous focal stranding within the anterior abdominal wall may be associated with prior instrumentation. Unchanged sclerotic foci within the pelvis (for example series 3 image 239 and 198). Lucent lesions within L2 and L3 may represent hemangiomas. Procedure Note Nedra Whitt MD - 10/14/2024 CLINICAL INDICATION: pelvic abscess, post-op pt TECHNIQUE: Multiple axial CT images were obtained from lung bases through upperthighs following administration of IV contrast, Omnipaque 300, 100 mL.Reformatted images in the coronal and sagittal planes were generated fromthe axial data set to facilitate diagnostic accuracy. Total DLP (Dose-Length Product): 746.56 mGy.cm. Please note: The reportedvalue represents the total of one or more individual components during theCT acquisition on this date and at this time, and as such, the same valuemay appear in more than one CT report depending on theinterpreting/reporting physicians. COMPARISON: CT abdomen/pelvis from 09/28/2024 FINDINGS: Lower Chest: No suspicious findings. Solid Abdominal Organs: Hepatic parenchyma is homogeneous. No suspicioushepatic mass. Cholelithiasis without evidence of cholecystitis. Nointrahepatic or extrahepatic biliary ductal dilatation. A 1.5 cmindeterminate nodule within the right adrenal gland is unchanged. Leftadrenal gland is unremarkable. Bilateral renal calculi, measuring up to 11mm at the superior pole of the left kidney and 6 mm at the inferior poleof the right kidney. No suspicious renal mass. No hydronephrosis.Pancreatic parenchyma is homogeneous. No pancreatic ductal dilatation. Thespleen is nonenlarged. GI Tract/Mesentery/Peritoneum: Stomach is unremarkable. Small and largebowel maintain expected caliber and contour. No bowel obstruction.Appendix is unremarkable. Colonic diverticulosis. A small amount ofstranding adjacent to multiple diverticula of the sigmoid is lessconspicuous than on comparison, however superimposed diverticulitis isdifficult to exclude. No mesenteric mass or peritoneal nodularity. Pelvic Viscera: Urinary bladder is unremarkable. Prior prostatectomy.Reduced conspicuity of the collection within the anterior left pelvis,with residual small collection now measuring up to 2.1 cm (previously 3.7cm when measured in the same plane, series 3 image 284). No gas within thecollection on current exam, however there is a thin residual tractextending toward the anterior wall of the pelvis. Well-defined possiblefluid collection within the right inguinal canal as the right testicleappears to be within the scrotum. Lymph Nodes/Vasculature: Prominent but nonenlarged pelvic lymph nodes onthe left may be reactive. Aortoiliac vasculature maintains normal caliberand contour. The portosplenic confluence is patent. Free Fluid: Trace stranding and fluid in the pelvis, reduced fromcomparison. Musculoskeletal and Body Wall: Subcutaneous focal stranding within theanterior abdominal wall may be associated with prior instrumentation.Unchanged sclerotic foci within the pelvis (for example series 3 image 239and 198). Lucent lesions within L2 and L3 may represent hemangiomas. IMPRESSION: Postoperative change associated with prior prostatectomy. Reduced conspicuity of the left anterior pelvic collection, with residualthin tract extending toward the anterior wall of the pelvis, possiblyrepresenting resolving abscess. Trace stranding within the pelvis, improved from comparison. However,there is stranding adjacent to the sigmoid in the region of multiplediverticula. Superimposed diverticulitis is difficult to exclude.Correlate with symptomatology. Unchanged indeterminate right adrenal gland nodule. CRITICAL RESULT: No. COMMUNICATION: Per this written report. Drafted by Nedra Whitt MD on 10/14/2024 8:57 AM Final report signed by Nedra Whitt MD on 10/14/2024 9:14 AM Kurt Casiano MD IMG CT PROCEDURES Final Resul t * SEND ANGELA MESSAGE (09/28/2024 2:39 PM EDT) Urine Urine specimen obtained by clean catch procedure / Unknown Non-blood Collection / Unknown 09/28/2024 2:39 PM EDT 09/28/2024 3:58 PM EDT us Felton Soto MD LAB URINE ORDERABLES Final Res ult Performing Organization Address [facility] de Phone Number [facility] [address] [place] [address] * Urine [place] Panel (09/28/2024 2:39 PM EDT) Extra Sent for Culture 09/28/2024 5:01 PM EDT [facility] Urine Urine specimen obtained by clean catch procedure / Unknown Non-blood Collection / Unknown 09/28/2024 2:39 PM EDT 09/28/2024 3:58 PM EDT us Felton Soto MD LAB URINE ORDERABLES Final Res ult Performing Organization Address [facility] de Phone Number [facility] [address] [place] [address] * Urinalysis Microscopic Examination (09/28/2024 2:39 PM EDT) Urine Urine specimen obtained by clean catch procedure / Unknown Non-blood Collection / Unknown 09/28/2024 2:39 PM EDT 09/28/2024 2:41 PM EDT us Felton Soto MD LAB URINE ORDERABLES Final Res ult Performing Organization Address [facility] de Phone Number [facility] [address] [place] [address] * (ABNORMAL) Urinalysis with reflex microscopic (Culture NOT Included) (09/28/2024 2:39 PM EDT) Color, Urine Yellow LAB URINALYSIS - AUTOMATED METHOD 09/28/2024 3:22 PM EDT [facility] Clarity, Urine Cloudy LAB URINALYSIS - AUTOMATED METHOD 09/28/2024 3:22 PM EDT [facility] Spec [place], Urine 1.018 1.005 - 1.030 LAB URINALYSIS - AUTOMATED METHOD 09/28/2024 3:22 PM EDT [facility] pH, Urine 5.5 5.0 - 8.0 LAB URINALYSIS - AUTOMATED METHOD 09/28/2024 3:22 PM EDT [facility] Protein, Urine 30(A) Negative mg/dL LAB URINALYSIS - AUTOMATED METHOD 09/28/2024 3:22 PM EDT [facility] Glucose, Urine Negative Negative mg/dL LAB URINALYSIS - AUTOMATED METHOD 09/28/2024 3:22 PM EDT [facility] Ketones, Urine Negative Negative mg/dL LAB URINALYSIS - AUTOMATED METHOD 09/28/2024 3:22 PM EDT [facility] Blood, Urine Large(A) Negative LAB URINALYSIS - AUTOMATED METHOD 09/28/2024 3:22 PM EDT [facility] Bilirubin, Urine Negative Negative LAB URINALYSIS - AUTOMATED METHOD 09/28/2024 3:22 PM EDT [facility] Urobilinogen, Urine 0.2 0.2 to 1.0 mg/dL LAB URINALYSIS - AUTOMATED METHOD 09/28/2024 3:22 PM EDT [facility] Leukocytes, Urine Large(A) Negative LAB URINALYSIS - AUTOMATED METHOD 09/28/2024 3:22 PM EDT [facility] Nitrite, Urine Negative Negative LAB URINALYSIS - AUTOMATED METHOD 09/28/2024 3:22 PM EDT [facility] RBC, Urine 31 - 50(A) 0 to 3 /HPF LAB URINALYSIS - AUTOMATED METHOD 09/28/2024 3:22 PM EDT [facility] Comment:This result was prev iously suppressed from the chart. WBC, Urine >50(A) 0 to 5 /HPF LAB URINALYSIS - AUTOMATED METHOD 09/28/2024 3:22 PM EDT [facility] Comment:This result was prev iously suppressed from the chart. Squamous Epithelial Cells 0 - 2 0 to 5 /HPF LAB URINALYSIS - AUTOMATED METHOD 09/28/2024 3:22 PM EDT [facility] Comment:This result was prev iously suppressed from the chart. Hyaline Casts 0 - 2 0 to 5 /LPF LAB URINALYSIS - AUTOMATED METHOD 09/28/2024 3:22 PM EDT [facility] Comment:This result was prev iously suppressed from the chart. Bacteria, Urine Negative Negative LAB URINALYSIS - AUTOMATED METHOD 09/28/2024 3:22 PM EDT [facility] Comment:This result was prev iously suppressed from the chart. Urine Urine specimen obtained by clean catch procedure / Unknown Non-blood Collection / Unknown 09/28/2024 2:39 PM EDT 09/28/2024 2:41 PM EDT us Felton Soto MD LAB URINE ORDERABLES Final Res ult Performing Organization Address [facility]/ZIP Co de Phone Number [facility] [address] [place] [address] * Urine Culture (09/28/2024 2:39 PM EDT) Culture No growth at day 1 09/29/2024 4:44 PM EDT [facility] Urine Urine specimen obtained by clean catch procedure / Unknown Non-blood Collection / Unknown 09/28/2024 2:39 PM EDT 09/28/2024 3:58 PM EDT us Felton Soto MD LAB MICROBIOLOGY - GENERAL ORD ERABLES Final Result Performing Organization Address [facility] Co de Phone Number [facility] [address] [place] [address] * (ABNORMAL) CBC w/diff (09/28/2024 2:28 PM EDT) WBC Count 9.05 3.70 - 10.30 10*3/uL LAB HEMATOLOGY METHOD 09/28/2024 2:40 PM EDT [facility] RBC Count 4.00(L) 4.60 - 6.10 10*6/uL LAB HEMATOLOGY METHOD 09/28/2024 2:40 PM EDT [facility] HGB 11.4(L) 13.7 - 17.5 g/dL LAB HEMATOLOGY METHOD 09/28/2024 2:40 PM EDT [facility] HCT 34.5(L) 40.0 - 51.0 % LAB HEMATOLOGY METHOD 09/28/2024 2:40 PM EDT [facility] Platelet Count 427(H) 155 - 369 10*3/uL LAB HEMATOLOGY METHOD 09/28/2024 2:40 PM EDT [facility] MCV 86 79 - 98 fL LAB HEMATOLOGY METHOD 09/28/2024 2:40 PM EDT [facility] MCH 28.5 26.0 - 32.0 pg LAB HEMATOLOGY METHOD 09/28/2024 2:40 PM EDT [facility] MCHC 33.0 30.7 - 35.5 g/dL LAB HEMATOLOGY METHOD 09/28/2024 2:40 PM EDT [facility] RDW 12.7 11.5 - 14.5 % LAB HEMATOLOGY METHOD 09/28/2024 2:40 PM EDT [facility] MPV 9.6 8.8 - 12.5 fL LAB HEMATOLOGY METHOD 09/28/2024 2:40 PM EDT [facility] nRBC 0.0 <=0.0 per 100 WBCs LAB HEMATOLOGY METHOD 09/28/2024 2:40 PM EDT [facility] Differential Type Automated LAB HEMATOLOGY METHOD 09/28/2024 2:40 PM EDT [facility] Neutrophils % 61 % LAB HEMATOLOGY METHOD 09/28/2024 2:40 PM EDT [facility] Lymphocytes % 28 % LAB HEMATOLOGY METHOD 09/28/2024 2:40 PM EDT [facility] Monocytes % 7 % LAB HEMATOLOGY METHOD 09/28/2024 2:40 PM EDT [facility] Eosinophils % 3 % LAB HEMATOLOGY METHOD 09/28/2024 2:40 PM EDT [facility] Basophils % 1 % LAB HEMATOLOGY METHOD 09/28/2024 2:40 PM EDT [facility] Immature Granulocytes % 0 % LAB HEMATOLOGY METHOD 09/28/2024 2:40 PM EDT [facility] Neutrophils Absolute 5.56 1.60 - 6.10 10*3/uL LAB HEMATOLOGY METHOD 09/28/2024 2:40 PM EDT [facility] Lymphocytes Absolute 2.51 1.20 - 3.90 10*3/uL LAB HEMATOLOGY METHOD 09/28/2024 2:40 PM EDT [facility] Monocytes Absolute 0.61 0.30 - 0.90 10*3/uL LAB HEMATOLOGY METHOD 09/28/2024 2:40 PM EDT [facility] Eosinophils Absolute 0.25 0.00 - 0.50 10*3/uL LAB HEMATOLOGY METHOD 09/28/2024 2:40 PM EDT [facility] Basophils Absolute 0.09 0.00 - 0.10 10*3/uL LAB HEMATOLOGY METHOD 09/28/2024 2:40 PM EDT [facility] Immature Granulocytes Absolute 0.03 0.00 - 0.06 10*3/uL LAB HEMATOLOGY METHOD 09/28/2024 2:40 PM EDT [facility] Blood Venous blood specimen / Unknown Venipuncture / Unknown 09/28/2024 2:28 PM EDT 09/28/2024 2:38 PM EDT Narrative [facility] - 09/28/2024 2:40 PM EDT Therapeutic decision making should be based on absolute values, rather than percentages. Felton Soto MD LAB BLOOD ORDERABLES Final Res ult Performing Organization Address City/[facility]/ZIP Co de Phone Number [facility] [address] [place] [address] * (ABNORMAL) C-reactive protein (09/28/2024 2:28 PM EDT) CRP, Plasma 30.8(H) <=8.0 mg/L 09/28/2024 3:13 PM EDT [facility] [facility] Blood Venous blood specimen / Unknown Venipuncture / Unknown 09/28/2024 2:28 PM EDT 09/28/2024 2:38 PM EDT Narrative [facility] - 09/28/2024 3:13 PM EDT This CRP test is appropriate for assessment of infection, systemic inflammation and/or tissue injury. To assess cardiovascular disease risk order high sensitivity CRP (CRPH). Felton Soto MD LAB BLOOD ORDERABLES Final Res ult Performing Organization Address [facility]/ZIP Co de Phone Number [facility] [address] [place] [address] * (ABNORMAL) CMP (09/28/2024 2:28 PM EDT) [facility] Glucose, Plasma 130(H) 74 - 99 mg/dL 09/28/2024 3:13 PM EDT [facility] BUN, Plasma 26(H) 8 - 23 mg/dL 09/28/2024 3:13 PM EDT [facility] Creatinine, Plasma 1.25(H) 0.70 - 1.20 mg/dL 09/28/2024 3:13 PM EDT [facility] BUN/Creatinine Ratio 21 09/28/2024 3:13 PM EDT [facility] Sodium, Plasma 139 136 - 145 mmol/L 09/28/2024 3:13 PM EDT [facility] Potassium, Plasma 4.7 3.6 - 4.9 mmol/L 09/28/2024 3:13 PM EDT [facility] Chloride, Plasma 105 97 - 107 mmol/L 09/28/2024 3:13 PM EDT [facility] CO2, Plasma 21(L) 22 - 29 mmol/L 09/28/2024 3:13 PM EDT [facility] Anion Gap 13 6 - 16 mmol/L 09/28/2024 3:13 PM EDT [facility] Total Calcium, Plasma 9.6 8.9 - 10.2 mg/dL 09/28/2024 3:13 PM EDT [facility] Total Protein 7.6 6.3 - 7.9 g/dL 09/28/2024 3:13 PM EDT [facility] Albumin, Plasma 4.0 3.5 - 5.2 g/dL 09/28/2024 3:13 PM EDT [facility] AST, Plasma 14 10 - 50 U/L 09/28/2024 3:13 PM EDT [facility] ALT, Plasma 23 10 - 50 U/L 09/28/2024 3:13 PM EDT [facility] Alkaline Phosphatase, Plasma 97 40 - 115 U/L 09/28/2024 3:13 PM EDT [facility] Total Bilirubin, Plasma <0.2(L) 0.2 - 1.1 mg/dL 09/28/2024 3:13 PM EDT [facility] eGFRcr 63.9 mL/min/1.7 3m*2 09/28/2024 3:13 PM EDT [facility] Comment:Reported eGFRcr in m L/min/1.73m2 is based the CKD-EPI 2020 equation that does not use a race coefficient. Blood Venous blood specimen / Unknown Venipuncture / Unknown 09/28/2024 2:28 PM EDT 09/28/2024 2:38 PM EDT us Felton Soto MD LAB BLOOD ORDERABLES Final Res ult [facility] [address] [place] [address] from Last 3 Months Additional Health Concerns Active Problems Noted Date Diagnosed Date Autogenerated Problem 06/17/2024 Insurance [facility] Advance Directives * Full Code (Latest Code Status on File) Date Activated Date Inactivated Comments 09/07/2024 5:59 PM 09/08/2024 2:13 PM Question Answer Comments Patient has decision-making capacity? Yes Care Teams Rotoformer Backtender Relationship Specialty Start Date End Date Kiersten Sykes APRN [address] [phone] PCP - General 10/14/24
--- OUTSIDE RECORDS SUMMARY | 2024-12-18 10:00 | XMS_ITS | Clinical Summary ---
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 Gender Identity Not on file Sexual Orientation Not on file Plan of Treatment Health Maintenance Due Date Last Done Comments CT Colonography 1959 Colonoscopy 1959 Colorectal Cancer Screening 1959 FOBT/FIT 1959 Fit-DNA (Cologuard) 1959 Sigmoidoscopy 1959 Depression Screening (12+) 1971 Tobacco Cessation Counseling and Screening (12+) 1971 HIV Screening 1974 Hepatitis C Screening 1977 DTAP/TDAP/TD VACCINES (1 - Tdap) 1978 Lipid Panel 1994 Pneumococcal 50+ years (1 of 1 - PCV) 2009 Falls Risk Screening 02/12/2024 COVID-19 VACCINE (5 - 2024-2 6 season) 2024 02/01/2022, 11/03/2020, 06/05/2020, Additional history exists Influenza Vaccine (#1) 2024 Respiratory Syncytial Virus (RSV) Adult or (1 - 1-dose 75+ series) 2034 Shingles Vaccine (Zoster) Completed 09/25/2023, Insurance [facility] CHO[facility] PL[facility] Care Teams Valve And Regulator Repairer Relationship Specialty Start Date End Date Kiersten Sykes, [employer] REPAIRER [address] [place] [id number] PCP - General Family Medicine 02/10/24
[2024-12-18 11:55] LABS: Prostate Specific Ag, Diagnost < 0.064 ng/ml (0.0-4.0)
== END 2024-12-18 23:59 | disposition home or self-care (01) ==
LOC: LAB 09:57
PROVIDERS: PCP Nurse Practitioner Family; Visit Provider Urology
DX: C61 Malignant neoplasm of prostate (principal)
CPT/HCPCS: 36415; 84153